=== PATIENT | female | born 1965 | race Caucasian/White ===

== ENCOUNTER 2017-02-10 09:37 | Emergency (ER) | payer MEDICARE, OTHER ==
[~2017-02-10] VITALS: Ht 165.1 cm; Wt 97.5 kg
[~2017-02-10 09:37] MED LIST: ACET-2154 PO; BENZ2AMP3 IM; Blood Sugar Diagnostic VI; FERR-38 PO; FLUT1DIS28 IH; HYDR-3326 PO; HYDR12.5 PO; LACT1CAP57 PO; MAG355OR18 PO; MAGN400T26 PO; METO50TA7 PO; OLAN10VI IM; OLAN5TAB6 PO; PANT40TA2 PO; TIZA4TAB4 PO; VALS160T2 PO
[2017-02-10 10:00] LABS: *BILIRUBIN,URIN NEGATIVE (NEGATIVE); *BLOOD, URINE Trace-lysed (NEGATIVE); *CLARITY,URINE CLOUDY (CLEAR); *COLOR,URINE YELLOW (YELLOW); *KETONES,URINE NEGATIVE (NEGATIVE); *PROTEIN,URINE NEGATIVE (NEGATIVE); *UROBILINOGEN,URINE 0.2 E.U./dl (NORMAL); LEUKOCYTE ESTERASE ,URINE 2+ (NEGATIVE); NITRITE, URINE NEGATIVE (NEGATIVE); PH,URINE 5.5 (5.0-8.0); UGLUCOSE NEGATIVE (NEGATIVE)
[2017-02-10 10:12] LABS: BACTERIA,URINE FEW /HPF (NONE SEEN); SQUAMOUS EPITHELIAL CELL,UR MODERATE /HPF (NONE SEEN); WBC,URINE 20-50 /HPF (0-3)
[2017-02-10] MEDS ORDERED: ONDANSETRON ODT 4 MG TAB.RAPDIS SL ONE (10:30)
[2017-02-10] MEDS ORDERED: CEPHALEXIN MONOHYDRATE 500 MG CAPSULE PO ONE (10:30)
[2017-02-10] MEDS ORDERED: ALBU8HFA4 HHN (10:31)
[2017-02-10] MEDS ORDERED: FERR325T28 PO (10:31)
[2017-02-10] MEDS ORDERED: ONDA4TAB8 SL (10:31)
[2017-02-10] MEDS ORDERED: FLUT1BLS IH (10:31)
[2017-02-10] MEDS ORDERED: METF10002 PO (10:31)
[2017-02-10] MEDS ORDERED: ROSU10TA PO (10:31)
[2017-02-10] MEDS ORDERED: DEXL60CA3 PO (10:31)
[2017-02-10] MEDS ORDERED: OMEG1CAP55 PO (10:31)
[2017-02-10] MEDS ORDERED: PROP20TA7 PO (10:31)
[2017-02-10] MEDS ORDERED: SITA100T PO (10:31)
[2017-02-10] MEDS ORDERED: ERGO2000 PO (10:31)
[2017-02-10] MEDS ORDERED: LIFI1DRO OP (10:31)
[2017-02-10] MEDS ORDERED: CALC-811 PO (10:31)
[2017-02-10] MEDS ORDERED: SUCR1TAB31 PO (10:31)
[2017-02-10] MEDS ORDERED: LORA0.5T PO (10:36)
[2017-02-10 10:55] LABS: BASOPHILS # (AUTO) 0.2 K/uL (0.0-8.0); BASOPHILS % (AUTO) 1.7 % (0.0-2.0); EOSINOPHILS # (AUTO) 0.3 K/uL (0.0-0.7); EOSINOPHILS % (AUTO) 2.6 % (0.0-7.0); HEMATOCRIT 39.5 % (37-47); HEMOGLOBIN 12.1 G/DL (12.0-16.0); LYMPHOCYTES # (AUTO) 1.3 K/UL (0.8-4.8); MEAN CORPUSCULAR HEMOGLOBIN 23.2 UUG (27.0-31.0); MEAN CORPUSCULAR HGB CONC 31 g/dL (32.0-37.0); MONOCYTES # (AUTO) 0.6 K/UL (0.1-1.30); MONOCYTES % (AUTO) 6.1 % (0.0-11.0); NEUTROPHILS # (AUTO) 8.1 K/UL (1.8-8.9); NEUTROPHILS % (AUTO) 77.6 % (38.5-71.5); PLATELET COUNT (AUTO) 239 K/UL (150-450); WHITE BLOOD COUNT (AUTO) 10.5 K/UL (4.0-11.2)
[2017-02-10 10:57] LABS: CREATININE 1.1 mg/dL (0.6-1.3); POTASSIUM 4.6 mmol/L (3.5-5.1)
[2017-02-10] MEDS ORDERED: CEPHALEXIN MONOHYDRATE 500 MG CAPSULE ONE (11:02)
[2017-02-10] MEDS ORDERED: ONDANSETRON ODT 4 MG TAB.RAPDIS ONE (11:02)
[2017-02-10 11:03] LABS: BILIRUBIN,DIRECT 0.1 mg/dL (0.0-0.2); BILIRUBIN,TOTAL 0.3 mg/dL (0.2-1.0); TOTAL PROTEIN, SERUM 7.8 g/dL (6.4-8.2)
--- NOTE | 2017-02-10 11:19 | NUR ---
Patient discharged to home in stable conditon. Written and verbal after care instructions given. Patient verbalizes understanding of instructions.pt walks in steady gait. pt deneis any nausea,pt accompanied by caregiver. Addendum: 02/10/17 at 1121 by POLY pt refuses pain med.
[2017-02-10 11:22] VITALS: BP 132/71
[2017-02-10 14:27] LABS: EOSINOPHILS % (MANUAL) 3 % (0-8); LYMPHOCYTES % (MANUAL) 16 % (20-40); MONOCYTES % (MANUAL) 7 % (2-10); NEUTROPHILS % (MANUAL) 74 % (42-75)
== END 2017-02-10 11:23 | disposition home or self-care (01) ==
LOC: ER 09:37
DX: N39.0 Urinary tract infection, site not specified (principal); I10 Essential (primary) hypertension; E78.5 Hyperlipidemia, unspecified; J45.909 Unspecified asthma, uncomplicated; E11.9 Type 2 diabetes mellitus without complications; Z88.1 Allergy status to other antibiotic agents; Z88.2 Allergy status to sulfonamides; Z88.6 Allergy status to analgesic agent; Z88.8 Allergy status to other drugs, medicaments and biological substances; Z91.013 Allergy to seafood
CPT/HCPCS: 36415; 80048; 80076; 81001; 83690; 84703; 85025; 99284; A4663; Q0162

== ENCOUNTER 2017-08-18 12:19 | Emergency (ER) | payer MEDICARE, OTHER ==
[~2017-08-18] VITALS: Ht 167.6 cm; Wt 99.8 kg
[~2017-08-18 12:19] MED LIST changes: -ACET-2154 PO; +ALBU8HFA4 HHN; -BENZ2AMP3 IM; +CALC-811 PO; +DEXL60CA3 PO; +ERGO2000 PO; -FERR-38 PO; +FERR325T28 PO; +FLUT1BLS IH; -FLUT1DIS28 IH; -HYDR-3326 PO; -HYDR12.5 PO; -LACT1CAP57 PO; +LIFI1DRO OP; +LORA0.5T PO; -MAG355OR18 PO; +METF10004 PO; -METO50TA7 PO; -OLAN10VI IM; -OLAN5TAB6 PO; +OMEG1CAP55 PO; +ONDA4TAB8 SL; +PROP20TA7 PO; +ROSU10TA PO; +SITA100T PO; +SUCR1TAB31 PO; -TIZA4TAB4 PO
[2017-08-18 12:42] LABS: *BILIRUBIN,URIN NEGATIVE (NEGATIVE); *BLOOD, URINE NEGATIVE (NEGATIVE); *CLARITY,URINE CLOUDY (CLEAR); *COLOR,URINE YELLOW (YELLOW); *KETONES,URINE NEGATIVE (NEGATIVE); *PROTEIN,URINE NEGATIVE (NEGATIVE); *UROBILINOGEN,URINE 0.2 E.U./dl (NORMAL); LEUKOCYTE ESTERASE ,URINE 1+ (NEGATIVE); NITRITE, URINE NEGATIVE (NEGATIVE); PH,URINE 5.5 (5.0-8.0); UGLUCOSE NEGATIVE (NEGATIVE)
[2017-08-18 12:57] LABS: BACTERIA,URINE FEW /HPF (NONE SEEN); RBC,URINE 0-3 /HPF (0-3); SQUAMOUS EPITHELIAL CELL,UR FEW /HPF (NONE SEEN); WBC,URINE 0-3 /HPF (0-3)
[2017-08-18] MEDS ORDERED: NITROFURANTOIN/NITROFURAN MAC 100 MG CAPSULE PO ONE (13:00)
--- NOTE | 2017-08-18 13:00 | NUR ---
Patient discharged to home in stable conditon with sister. Written and verbal after care instructions given. Patient verbalizes understanding of instructions.
[2017-08-18] MEDS ORDERED: NITROFURANTOIN/NITROFURAN MAC 100 MG CAPSULE ONE (13:02)
== END 2017-08-18 13:01 | disposition home or self-care (01) ==
LOC: ER 12:19
DX: N39.0 Urinary tract infection, site not specified (principal); E11.9 Type 2 diabetes mellitus without complications; F32.9 Major depressive disorder, single episode, unspecified; E78.5 Hyperlipidemia, unspecified; I10 Essential (primary) hypertension; J45.909 Unspecified asthma, uncomplicated; K85.90 Acute pancreatitis without necrosis or infection, unspecified; Z88.2 Allergy status to sulfonamides
CPT/HCPCS: 81001; 99283; A4663

== ENCOUNTER 2017-10-09 15:41 | Emergency (ER) | payer MEDICARE, OTHER ==
[~2017-10-09] VITALS: Ht 165.1 cm; Wt 95.3 kg
--- NOTE | 2017-10-09 16:30 | NUR ---
LABS DRAWN/URINE SENT.
[2017-10-09 16:31] LABS: BASOPHILS # (AUTO) 0.1 K/uL (0.0-8.0); BASOPHILS % (AUTO) 0.9 % (0.0-2.0); EOSINOPHILS # (AUTO) 0.3 K/uL (0.0-0.7); EOSINOPHILS % (AUTO) 2.2 % (0.0-7.0); HEMATOCRIT 34.4 % (31.2-41.9); HEMOGLOBIN 11.1 g/dL (10.9-14.3); LYMPHOCYTES # (AUTO) 1.9 K/uL (20.0-40.0); MEAN CORPUSCULAR HEMOGLOBIN 27.3 uug (24.7-32.8); MEAN CORPUSCULAR HGB CONC 32 g/dL (32.3-35.6); MEAN CORPUSCULAR VOLUME 84.4 fL (75.5-95.3); MONOCYTES % (AUTO) 8.4 % (0.0-11.0); NEUTROPHILS # (AUTO) 8.8 K/uL (1.8-8.9); NEUTROPHILS % (AUTO) 72.5 % (38.5-71.5); PLATELET COUNT (AUTO) 275 K/uL (179-408); RED BLOOD CELL COUNT(AUTO) 4.07 MIL/uL (3.63-4.92); WHITE BLOOD COUNT (AUTO) 12.1 K/uL (3.8-11.8)
[2017-10-09 16:40] LABS: POTASSIUM 3.6 mmol/L (3.5-5.1)
[2017-10-09 16:40] LABS: *BILIRUBIN,URIN NEGATIVE (NEGATIVE); *BLOOD, URINE 3+ (NEGATIVE); *COLOR,URINE RED (YELLOW); *KETONES,URINE NEGATIVE (NEGATIVE); *PROTEIN,URINE 3+ (NEGATIVE); *UROBILINOGEN,URINE 0.2 E.U./dl (NORMAL); LEUKOCYTE ESTERASE ,URINE 1+ (NEGATIVE); NITRITE, URINE NEGATIVE (NEGATIVE); PH,URINE 6.5 (5.0-8.0); UGLUCOSE NEGATIVE (NEGATIVE)
[2017-10-09 16:47] LABS: *CLARITY,URINE BLOODY (CLEAR)
[2017-10-09 16:48] LABS: MUCUS,URINE MODERATE /LPF (0-FEW); RBC,URINE TNTC /HPF (0-3); SQUAMOUS EPITHELIAL CELL,UR FEW /HPF (NONE SEEN); WBC,URINE 20-50 /HPF (0-3)
--- NOTE | 2017-10-09 19:00 | NUR ---
Ultrasound at bedside
--- NOTE | 2017-10-09 19:04 | NUR ---
SBAR REPORT TO SUZETTE BAILEY
--- NOTE | 2017-10-09 19:58 | NUR ---
Patient discharged to home in stable conditon. Written and verbal after care instructions given. Patient verbalizes understanding of instructions. Patient ambulated out of ER with steady gait, no acute signs of distress, VSS, all belongings taken.
[2017-10-09 20:00] VITALS: BP 155/83
== END 2017-10-09 20:00 | disposition home or self-care (01) ==
LOC: ER 17:52
DX: N92.4 Excessive bleeding in the premenopausal period (principal); I10 Essential (primary) hypertension; E78.5 Hyperlipidemia, unspecified; J45.909 Unspecified asthma, uncomplicated; E11.9 Type 2 diabetes mellitus without complications; Z88.2 Allergy status to sulfonamides; Z88.1 Allergy status to other antibiotic agents; Z88.8 Allergy status to other drugs, medicaments and biological substances; Z91.041 Radiographic dye allergy status; Z91.013 Allergy to seafood; Z79.84 Long term (current) use of oral hypoglycemic drugs; Z79.51 Long term (current) use of inhaled steroids; Z79.899 Other long term (current) drug therapy
CPT/HCPCS: 36415; 76856; 83690; 84703; 85025; A4663

== ENCOUNTER 2018-04-01 12:09 | Emergency (ER) | payer MEDICARE, OTHER ==
[~2018-04-01] VITALS: Ht 73.7 cm; Wt 104.3 kg
[~2018-04-01 12:09] MED LIST changes: +METF-442 PO; -METF10004 PO
--- NOTE | 2018-04-01 12:39 | NUR ---
PT IS IN ROOM #2A. DR MCFARLAND EVALUATED THE PT.
[2018-04-01 12:56] LABS: *BILIRUBIN,URIN NEGATIVE (NEGATIVE); *BLOOD, URINE 1+ (NEGATIVE); *CLARITY,URINE SLIGHTLY CLOUDY (CLEAR); *COLOR,URINE YELLOW (YELLOW); *KETONES,URINE NEGATIVE (NEGATIVE); *PROTEIN,URINE TRACE (NEGATIVE); *UROBILINOGEN,URINE 0.2 E.U./dl (NORMAL); LEUKOCYTE ESTERASE ,URINE 2+ (NEGATIVE); NITRITE, URINE NEGATIVE (NEGATIVE); PH,URINE 5.5 (5.0-8.0); UGLUCOSE NEGATIVE (NEGATIVE)
[2018-04-01 13:01] LABS: BACTERIA,URINE MANY /HPF (NONE SEEN); SQUAMOUS EPITHELIAL CELL,UR MANY /HPF (NONE SEEN); WBC,URINE 80-100 /HPF (0-3)
[2018-04-01 13:09] LABS: BASOPHILS # (AUTO) 0.1 K/uL (0.0-8.0); BASOPHILS % (AUTO) 0.7 % (0.0-2.0); EOSINOPHILS # (AUTO) 0.3 K/uL (0.0-0.7); EOSINOPHILS % (AUTO) 2.5 % (0.0-7.0); HEMATOCRIT 41.7 % (31.2-41.9); HEMOGLOBIN 13.8 g/dL (10.9-14.3); LYMPHOCYTES # (AUTO) 1.5 K/uL (20.0-40.0); LYMPHOCYTES % (AUTO) 13.4 % (20.5-51.5); MEAN CORPUSCULAR HEMOGLOBIN 27.9 uug (24.7-32.8); MEAN CORPUSCULAR HGB CONC 33 g/dL (32.3-35.6); MEAN CORPUSCULAR VOLUME 84.2 fL (75.5-95.3); MONOCYTES # (AUTO) 0.8 K/uL (2.0-10.0); MONOCYTES % (AUTO) 7.7 % (0.0-11.0); NEUTROPHILS # (AUTO) 8.3 K/uL (1.8-8.9); NEUTROPHILS % (AUTO) 75.7 % (38.5-71.5); PLATELET COUNT (AUTO) 221 K/uL (179-408); RED BLOOD CELL COUNT(AUTO) 4.95 MIL/uL (3.63-4.92)
[2018-04-01 13:16] LABS: CREATININE 1.1 mg/dL (0.6-1.3); POTASSIUM 3.7 mmol/L (3.5-5.1)
[2018-04-01 13:22] LABS: BILIRUBIN,DIRECT 0.1 mg/dL (0.0-0.2); BILIRUBIN,TOTAL 0.3 mg/dL (0.2-1.0); TOTAL PROTEIN, SERUM 8.4 g/dL (6.4-8.2)
--- NOTE | 2018-04-01 14:10 | NUR ---
PT WAS D/C'd TO HOME. D/C INSTRUCTIONS GIVEN TO THE PT.
[2018-04-01 14:11] VITALS: BP 139/81
== END 2018-04-01 14:11 | disposition home or self-care (01) ==
LOC: ER 12:11
DX: N39.0 Urinary tract infection, site not specified (principal); G89.29 Other chronic pain; R10.9 Unspecified abdominal pain; I10 Essential (primary) hypertension; E78.5 Hyperlipidemia, unspecified; J45.909 Unspecified asthma, uncomplicated; E11.9 Type 2 diabetes mellitus without complications; Z88.2 Allergy status to sulfonamides; Z88.8 Allergy status to other drugs, medicaments and biological substances; Z91.041 Radiographic dye allergy status; Z91.013 Allergy to seafood; Z79.899 Other long term (current) drug therapy
CPT/HCPCS: 36415; 70030-TC; 71045; 83690; 85025; 87077; 87086; 93005; A4663

== ENCOUNTER 2018-07-14 20:43 | Emergency (ER) | payer MEDICARE, OTHER ==
[~2018-07-14] VITALS: Ht 167.6 cm; Wt 102.1 kg
[~2018-07-14 20:43] MED LIST changes: -ROSU10TA PO; +ROSU10TA2 PO
--- NOTE | 2018-07-14 20:58 | NUR ---
PT IS IN ROOM #2A. DR TAMAYO EVALUATED THE PT.
[2018-07-14] MEDS ORDERED: diphenhydrAMINE 50 MG/1 ML VIAL IV ONE (21:30)
[2018-07-14] MEDS ORDERED: diphenhydrAMINE 50 MG/1 ML VIAL ONE (22:06)
[2018-07-14] MEDS ORDERED: GABAPENTIN 300 MG CAPSULE ONE (22:06)
[2018-07-14] MEDS: diphenhydrAMINE 50 MG/1 ML VIAL IM ONE (22:08)
[2018-07-14] MEDS: GABAPENTIN 300 MG CAPSULE PO ONE (22:08)
[2018-07-14 23:49] LABS: BASOPHILS # (AUTO) 0.1 K/uL (0.0-8.0); BASOPHILS % (AUTO) 0.7 % (0.0-2.0); EOSINOPHILS # (AUTO) 0.4 K/uL (0.0-0.7); EOSINOPHILS % (AUTO) 3.4 % (0.0-7.0); HEMATOCRIT 39.4 % (31.2-41.9); LYMPHOCYTES # (AUTO) 1.8 K/uL (20.0-40.0); LYMPHOCYTES % (AUTO) 16.5 % (20.5-51.5); MEAN CORPUSCULAR HEMOGLOBIN 27.3 uug (24.7-32.8); MEAN CORPUSCULAR HGB CONC 33 g/dL (32.3-35.6); MEAN CORPUSCULAR VOLUME 82.6 fL (75.5-95.3); MONOCYTES # (AUTO) 1.1 K/uL (2.0-10.0); MONOCYTES % (AUTO) 9.9 % (0.0-11.0); NEUTROPHILS # (AUTO) 7.7 K/uL (1.8-8.9); NEUTROPHILS % (AUTO) 69.5 % (38.5-71.5); PLATELET COUNT (AUTO) 243 K/uL (179-408); RED BLOOD CELL COUNT(AUTO) 4.77 MIL/uL (3.63-4.92)
[2018-07-14 23:57] LABS: CREATININE 1.1 mg/dL (0.6-1.3); POTASSIUM 3.6 mmol/L (3.5-5.1)
[2018-07-15 00:10] LABS: BILIRUBIN,DIRECT 0.1 mg/dL (0.0-0.2); BILIRUBIN,TOTAL 0.5 mg/dL (0.2-1.0)
[2018-07-15] MEDS: HYDROMORPHONE 1 MG/1 ML DISP.SYRIN IM ONE (00:30)
[2018-07-15] MEDS: diphenhydrAMINE 50 MG/1 ML VIAL IM ONE (00:30)
--- NOTE | 2018-07-15 01:48 | NUR ---
PT WAS D/C'd TO HOME AFTER DR TAMAYO RE-EVALUATION. D/C INSTRUCTIONS GIVEN TO THE PT BY DR TAMAYO. PT WAS TRANSFERED TO HER LOCATION BY [facility].
[2018-07-15 01:52] VITALS: BP 125/75
== END 2018-07-15 01:58 | disposition home or self-care (01) ==
LOC: ER 20:44
DX: G47.00 Insomnia, unspecified (principal); G89.29 Other chronic pain; M54.9 Dorsalgia, unspecified; I10 Essential (primary) hypertension; I25.2 Old myocardial infarction; E78.5 Hyperlipidemia, unspecified; J45.909 Unspecified asthma, uncomplicated; E11.9 Type 2 diabetes mellitus without complications; Z88.2 Allergy status to sulfonamides; Z88.8 Allergy status to other drugs, medicaments and biological substances; Z91.013 Allergy to seafood; Z79.899 Other long term (current) drug therapy
CPT/HCPCS: 36415; 71045; 80048; 80076; 83880; 84484; 85025; 85730; 93005; 96372; 99284; J1200; 70030-TC; A4663

== ENCOUNTER 2018-11-25 12:55 | Inpatient (IN) | payer MEDICARE, OTHER ==
[~2018-11-25] VITALS: Ht 167.6 cm; Wt 96.2 kg
[~2018-11-25 12:55] MED LIST changes: +CALC-17 PO; -CALC-811 PO
--- NOTE | 2018-11-25 13:10 | NUR ---
PT DOES NOT REMEMBER HER HOME MEDICATION CHANGES.
[2018-11-25 14:56] LABS: BASOPHILS # (AUTO) 0.1 K/uL (0.0-8.0); BASOPHILS % (AUTO) 0.8 % (0.0-2.0); EOSINOPHILS # (AUTO) 0.3 K/uL (0.0-0.7); HEMATOCRIT 37.2 % (31.2-41.9); LYMPHOCYTES # (AUTO) 2.2 K/uL (20.0-40.0); LYMPHOCYTES % (AUTO) 17.4 % (20.5-51.5); MEAN CORPUSCULAR HEMOGLOBIN 27.4 uug (24.7-32.8); MEAN CORPUSCULAR HGB CONC 32 g/dL (32.3-35.6); MEAN CORPUSCULAR VOLUME 84.5 fL (75.5-95.3); MONOCYTES # (AUTO) 1.1 K/uL (2.0-10.0); MONOCYTES % (AUTO) 8.2 % (0.0-11.0); NEUTROPHILS # (AUTO) 9.2 K/uL (1.8-8.9); NEUTROPHILS % (AUTO) 71.6 % (38.5-71.5); PLATELET COUNT (AUTO) 218 K/uL (179-408); WHITE BLOOD COUNT (AUTO) 12.9 K/uL (3.8-11.8)
[2018-11-25 15:08] LABS: CARBON DIOXIDE 23 mmol/L (21-32); CHLORIDE 107 mmol/L (98-107); CREATININE 0.9 mg/dL (0.6-1.3); GLUCOSE 107 mg/dL (74-106); POTASSIUM 4.4 mmol/L (3.5-5.1); UREA NITROGEN, BLOOD 33 mg/dL (7-18)
[2018-11-25 15:12] LABS: ETHANOL < 3 MG/DL (0-0)
[2018-11-25 15:13] LABS: ALANINE AMINOTRANSFERASE 29 U/L (14-59); ALKALINE PHOSPHATASE 66 U/L (50-136); ASPARTATE AMINOTRANSFERASE 23 U/L (15-37); BILIRUBIN,DIRECT 0.1 mg/dL (0.0-0.2); BILIRUBIN,TOTAL 0.2 mg/dL (0.2-1.0); TOTAL PROTEIN, SERUM 7.6 g/dL (6.4-8.2)
[2018-11-25 15:14] LABS: ACETAMINOPHEN < 2.0 ug/mL (10-30)
--- NOTE | 2018-11-25 15:30 | NUR ---
Hydro Operator assumes care. Patient is medically cleared by Dr Banegas, pending psych evaluation by kerrie Leahy. Patient is calm & cooperative with steady gait.
[2018-11-25 16:28] LABS: *BILIRUBIN,URIN NEGATIVE (NEGATIVE); *COLOR,URINE YELLOW (YELLOW); *KETONES,URINE NEGATIVE (NEGATIVE); *UROBILINOGEN,URINE 0.2 E.U./dl (NORMAL); LEUKOCYTE ESTERASE ,URINE 3+ (NEGATIVE); NITRITE, URINE NEGATIVE (NEGATIVE); PH,URINE 5.5 (5.0-8.0); UGLUCOSE NEGATIVE (NEGATIVE)
[2018-11-25 16:45] LABS: *BLOOD, URINE TRACE (NEGATIVE); *CLARITY,URINE HAZY (CLEAR)
[2018-11-25 16:48] LABS: BACTERIA,URINE MODERATE /HPF (NONE SEEN); SQUAMOUS EPITHELIAL CELL,UR MANY /HPF (NONE SEEN); WBC,URINE 80-100 /HPF (0-3)
[2018-11-25 16:49] LABS: *AMPHETAMINE, URINE NEGATIVE (NEGATIVE); *BARBITURATE, URINE NEGATIVE (NEGATIVE); *CANNABINOID, URINE NEGATIVE (NEGATIVE); *COCCAINE, URINE NEGATIVE (NEGATIVE); *OPIATE, URINE NEGATIVE (NEGATIVE); *PHENCYCLIDINE SCREEN,URINE NEGATIVE (NEGATIVE)
--- NOTE | 2018-11-25 17:55 | NUR ---
Patient is eating dinner tray with good appetite, no acute change in condition seen.
--- NOTE | 2018-11-25 19:04 | NUR ---
Pt. admitted to M[facility] room 139 , under care of Dr. Arnie More & [facility] hospitalist. Belongs List completed. Nursing hands off report given to MHU RN Eduard.
--- NOTE | 2018-11-25 19:09 | NUR ---
Patient is still for transfer to MHU, endorsed to LEO Hodges.
[2018-11-25] MEDS ORDERED: LORAZEPAM 1 MG TABLET PO PRN (19:30)
[2018-11-25] MEDS ORDERED: BLOOD SUGAR DIAGNOSTIC 1 EACH STRIP VI ONE (19:30)
[2018-11-25] MEDS ORDERED: MAGNESIUM HYDROXIDE 30 ML LIQUID UDC PO PRN (19:30)
[2018-11-25 20:00] VITALS: BP 133/73
[2018-11-25] MEDS ORDERED: DEXTROSE 50% 50 ML DISP.SYRIN IV PRN (20:00)
[2018-11-25] MEDS ORDERED: ONDANSETRON ODT 4 MG TAB.RAPDIS SL PRN (20:00)
[2018-11-25] MEDS ORDERED: Medication Not On Formulary EA (Ergocalciferol (Vitamin D2) (Vitamin D2 TAB) 50,000 UNIT PO SCH (20:00)
[2018-11-25] MEDS ORDERED: INSULIN REGULAR, HUMAN 300 UNIT/3 ML VIAL SQ PRN (20:00)
--- NOTE | 2018-11-25 20:30 | NUR ---
GPS/NSG ADMITTING NOTE Patient was placed on a 5150 for grave disability after the caregiver brought her to ER because she was unable to sleep for days, was emotional and labile with the inability to calm down. On admission patient was alert, oriented x3, flat affect, low mood, disheveled, malodorous and unkempt. Patient cooperative with admission process, signed paperwork, patient rights handbook provided as well as oriented to her room and unit. Psychiatrist and physician notified. Plan of care initiated, will monitor for safety.
[2018-11-25] MEDS: CEphaleXIN 500 MG CAPSULE PO SCH (20:50)
[2018-11-25] MEDS: BLOOD SUGAR DIAGNOSTIC 1 EACH STRIP VI SCH (20:50)
[2018-11-26] MEDS: PANTOPRAZOLE SODIUM 40 MG TABLET.DR PO SCH (07:00)
--- NOTE | 2018-11-26 07:20 | NUR ---
Patient received, ambulating in room, no acute distress noted. denies SI and hallucinations/delusions will continue to monitor for any AMY.
[2018-11-26 07:30] VITALS: BP 116/67
[2018-11-26] MEDS: SUCRALFATE 1 G TABLET PO SCH ×3 (07:31→16:30)
[2018-11-26] MEDS: BLOOD SUGAR DIAGNOSTIC 1 EACH STRIP VI SCH ×4 (07:37→21:14)
[2018-11-26] MEDS: METFORMIN HCL 500 MG TABLET PO SCH ×2 (08:37→17:28)
[2018-11-26] MEDS: ATORVASTATIN 20 MG TABLET PO SCH (08:37)
[2018-11-26] MEDS: MAGNESIUM OXIDE 400 MG TABLET PO SCH ×2 (08:37→17:29)
[2018-11-26] MEDS: OMEGA-3 FATTY ACIDS/FISH OIL CAPSULE PO SCH (08:37)
[2018-11-26] MEDS: CEphaleXIN 500 MG CAPSULE PO SCH ×2 (08:38→17:28)
[2018-11-26] MEDS: FERROUS SULFATE 325 MG TABEC PO SCH ×2 (08:38→17:29)
[2018-11-26] MEDS: LINAGLIPTIN 5 MG TABLET PO SCH (08:39)
[2018-11-26] MEDS: PROPRANOLOL HCL 20 MG TABLET PO SCH ×2 (08:40→17:28)
[2018-11-26] MEDS: CALCIUM CARB/VITAMIN D 500MG-200UNITS TABLET PO SCH (08:41)
[2018-11-26] MEDS: VALSARTAN 160 MG TABLET PO SCH (08:44)
[2018-11-26] MEDS ORDERED: Medication Not On Formulary EA (Dexlansoprazole (Dexilant) 30 MG) PO SCH (09:00)
[2018-11-26] MEDS ORDERED: Medication Not On Formulary EA (Rosuvastatin Calcium (Crestor) 1 TAB) PO SCH (09:00)
[2018-11-26] MEDS ORDERED: Medication Not On Formulary EA (Omega-3 Acid Ethyl Esters (Lovaza) 1 GM) PO SCH (09:00)
[2018-11-26] MEDS ORDERED: diphenhydrAMINE 1% CREAM 28.3 GM TUBE TP PRN (13:00)
[2018-11-26 15:22] LABS: BASOPHILS # (AUTO) 0.1 K/uL (0.0-8.0); BASOPHILS % (AUTO) 0.7 % (0.0-2.0); EOSINOPHILS # (AUTO) 0.4 K/uL (0.0-0.7); EOSINOPHILS % (AUTO) 3.9 % (0.0-7.0); HEMATOCRIT 39.8 % (31.2-41.9); HEMOGLOBIN 13.1 g/dL (10.9-14.3); LYMPHOCYTES # (AUTO) 1.8 K/uL (20.0-40.0); LYMPHOCYTES % (AUTO) 16.5 % (20.5-51.5); MEAN CORPUSCULAR HEMOGLOBIN 27.7 uug (24.7-32.8); MEAN CORPUSCULAR HGB CONC 33 g/dL (32.3-35.6); MEAN CORPUSCULAR VOLUME 84.5 fL (75.5-95.3); MONOCYTES # (AUTO) 0.9 K/uL (2.0-10.0); MONOCYTES % (AUTO) 8.6 % (0.0-11.0); NEUTROPHILS # (AUTO) 7.6 K/uL (1.8-8.9); NEUTROPHILS % (AUTO) 70.3 % (38.5-71.5); PLATELET COUNT (AUTO) 235 K/uL (179-408); RED BLOOD CELL COUNT(AUTO) 4.72 MIL/uL (3.63-4.92); WHITE BLOOD COUNT (AUTO) 10.8 K/uL (3.8-11.8)
[2018-11-26 15:46] LABS: MAGNESIUM 1.3 mg/dL (1.8-2.4); PHOSPHOROUS 3.2 mg/dL (2.5-4.9); POTASSIUM 4.4 mmol/L (3.5-5.1)
[2018-11-26 16:00] VITALS: BP 112/58
[2018-11-26 16:00] LABS: THYROID STIMULATING HORMONE 1.415 mIU/mL (0.358-3.740)
--- NOTE | 2018-11-26 17:12 | NUR ---
Initial discharge plan: Pt resides at home alone with [facility]HSS at [address] [place] [address], [facility] [address]; [phone]. Per pt, she would like to return home upon discharge but would like to change IHSS provides, as she is not comfortable with her current provider. SW will speak with pt, family, and MD regarding appropriate discharge plans. SW will form a safe and proper discharge plan.
[2018-11-26 20:09] VITALS: BP 135/87
[2018-11-26] MEDS: QUETIAPINE FUMARATE 100 MG TABLET PO SCH (21:22)
[2018-11-27] MEDS: SUCRALFATE 1 G TABLET PO SCH ×3 (07:00→18:09)
[2018-11-27] MEDS: PANTOPRAZOLE SODIUM 40 MG TABLET.DR PO SCH (07:00)
[2018-11-27] MEDS: BLOOD SUGAR DIAGNOSTIC 1 EACH STRIP VI SCH ×5 (07:00→21:00)
[2018-11-27 07:30] VITALS: BP 132/72
[2018-11-27 07:33] LABS: MAGNESIUM 1.3 mg/dL (1.8-2.4); POTASSIUM 4.3 mmol/L (3.5-5.1)
[2018-11-27 07:42] LABS: BASOPHILS # (AUTO) 0.1 K/uL (0.0-8.0); BASOPHILS % (AUTO) 0.6 % (0.0-2.0); EOSINOPHILS # (AUTO) 0.4 K/uL (0.0-0.7); EOSINOPHILS % (AUTO) 4.6 % (0.0-7.0); HEMATOCRIT 39.5 % (31.2-41.9); HEMOGLOBIN 12.8 g/dL (10.9-14.3); LYMPHOCYTES # (AUTO) 1.8 K/uL (20.0-40.0); LYMPHOCYTES % (AUTO) 21.4 % (20.5-51.5); MEAN CORPUSCULAR HEMOGLOBIN 27.8 uug (24.7-32.8); MEAN CORPUSCULAR HGB CONC 33 g/dL (32.3-35.6); MEAN CORPUSCULAR VOLUME 85.5 fL (75.5-95.3); MONOCYTES # (AUTO) 0.9 K/uL (2.0-10.0); MONOCYTES % (AUTO) 10.7 % (0.0-11.0); NEUTROPHILS # (AUTO) 5.3 K/uL (1.8-8.9); NEUTROPHILS % (AUTO) 62.7 % (38.5-71.5); PLATELET COUNT (AUTO) 216 K/uL (179-408); RED BLOOD CELL COUNT(AUTO) 4.62 MIL/uL (3.63-4.92); WHITE BLOOD COUNT (AUTO) 8.4 K/uL (3.8-11.8)
[2018-11-27] MEDS: SERTRALINE HCL 50 MG TABLET PO SCH (08:23)
[2018-11-27] MEDS: LINAGLIPTIN 5 MG TABLET PO SCH (08:23)
[2018-11-27] MEDS: PROPRANOLOL HCL 20 MG TABLET PO SCH ×2 (08:23→18:10)
[2018-11-27] MEDS: MAGNESIUM OXIDE 400 MG TABLET PO SCH ×2 (08:23→18:09)
[2018-11-27] MEDS: OMEGA-3 FATTY ACIDS/FISH OIL CAPSULE PO SCH (08:23)
[2018-11-27] MEDS: METFORMIN HCL 500 MG TABLET PO SCH ×2 (08:23→18:09)
[2018-11-27] MEDS: VALSARTAN 160 MG TABLET PO SCH (08:23)
[2018-11-27] MEDS: CALCIUM CARB/VITAMIN D 500MG-200UNITS TABLET PO SCH (08:23)
[2018-11-27] MEDS: ATORVASTATIN 20 MG TABLET PO SCH (08:23)
[2018-11-27] MEDS: CEphaleXIN 500 MG CAPSULE PO SCH ×2 (08:24→18:09)
[2018-11-27] MEDS: FERROUS SULFATE 325 MG TABEC PO SCH ×2 (08:24→18:09)
[2018-11-27] MEDS ORDERED: MAGNESIUM OXIDE 400 MG TABLET PO ONE (13:45)
[2018-11-27 16:00] VITALS: BP 146/83
[2018-11-27] MEDS: ERGOCALCIFEROL 50,000 UNIT CAPSULE PO SCH (20:14)
[2018-11-27] MEDS: QUETIAPINE FUMARATE 100 MG TABLET PO SCH (20:22)
--- NOTE | 2018-11-27 20:26 | NUR ---
received to care, talking to self. appearing distracted by internal stimuli. stated that "PEOPLE" from the outside, are monitoring her in the hospital, and that the staff is in on the conspiracy. she refused all medications, did allow blood sugar check (131), but refused insulin coverage. currently in hallway with room mate. continues to appear distracted by internal stimuli.
[2018-11-27 20:57] VITALS: BP 144/81
--- NOTE | 2018-11-27 22:00 | NUR ---
appears to be asleep. no distress noted.
--- NOTE | 2018-11-28 06:00 | NUR ---
slept 6.5 hours. continues to sleep. no distress noted.
[2018-11-28] MEDS: PANTOPRAZOLE SODIUM 40 MG TABLET.DR PO SCH (07:00)
--- NOTE | 2018-11-28 07:00 | NUR ---
PATIENT FASTING BLOOD GLUCOSE LEVEL IS 117. WILL CONTINUE TO MONITOR.
[2018-11-28 07:30] VITALS: BP 118/68
[2018-11-28] MEDS: BLOOD SUGAR DIAGNOSTIC 1 EACH STRIP VI SCH ×4 (07:30→21:18)
[2018-11-28] MEDS: SERTRALINE HCL 50 MG TABLET PO SCH (09:00)
[2018-11-28] MEDS: FERROUS SULFATE 325 MG TABEC PO SCH ×2 (09:00→17:00)
[2018-11-28] MEDS: MAGNESIUM OXIDE 400 MG TABLET PO SCH ×2 (09:03→17:02)
[2018-11-28] MEDS: OMEGA-3 FATTY ACIDS/FISH OIL CAPSULE PO SCH (09:04)
[2018-11-28] MEDS: CEphaleXIN 500 MG CAPSULE PO SCH ×2 (09:05→17:01)
[2018-11-28] MEDS: ATORVASTATIN 20 MG TABLET PO SCH (09:05)
[2018-11-28] MEDS: METFORMIN HCL 500 MG TABLET PO SCH ×2 (09:05→17:05)
[2018-11-28] MEDS: CALCIUM CARB/VITAMIN D 500MG-200UNITS TABLET PO SCH (09:05)
[2018-11-28] MEDS: SUCRALFATE 1 G TABLET PO SCH ×3 (09:06→17:01)
[2018-11-28] MEDS: PROPRANOLOL HCL 20 MG TABLET PO SCH ×2 (09:07→17:01)
[2018-11-28] MEDS: LINAGLIPTIN 5 MG TABLET PO SCH (09:08)
[2018-11-28] MEDS: VALSARTAN 160 MG TABLET PO SCH (12:49)
[2018-11-28 16:00] VITALS: BP 133/77
[2018-11-28 20:49] VITALS: BP 118/62
--- NOTE | 2018-11-28 21:00 | NUR ---
Patient is pleasantly confused. Alert and oriented x2. Reinforced teaching on her plan of care. Initially refused medication but took meds after teaching. Blood glucose HS is 117mg/dl. No coverage given. Offered Mylanta Po PRN for stomach upset and discomfort. Will continue to monitor behavior and medication effectiveness.
[2018-11-28] MEDS: QUETIAPINE FUMARATE 100 MG TABLET PO SCH (21:15)
[2018-11-28] MEDS: MAG HYDROX/AL HYDROX/SIMETH 30 ML LIQUID UDC PO PRN (21:15)
[2018-11-29] MEDS: PANTOPRAZOLE SODIUM 40 MG TABLET.DR PO SCH (06:40)
[2018-11-29] MEDS: SUCRALFATE 1 G TABLET PO SCH ×3 (06:40→17:33)
[2018-11-29] MEDS: BLOOD SUGAR DIAGNOSTIC 1 EACH STRIP VI SCH ×2 (06:42→12:33)
[2018-11-29 07:30] VITALS: BP 123/59
[2018-11-29] MEDS: MAGNESIUM OXIDE 400 MG TABLET PO SCH ×2 (08:54→17:31)
[2018-11-29] MEDS: OMEGA-3 FATTY ACIDS/FISH OIL CAPSULE PO SCH (08:54)
[2018-11-29] MEDS: CEphaleXIN 500 MG CAPSULE PO SCH ×2 (08:54→17:32)
[2018-11-29] MEDS: METFORMIN HCL 500 MG TABLET PO SCH ×2 (08:57→17:37)
[2018-11-29] MEDS: SERTRALINE HCL 50 MG TABLET PO SCH (08:57)
[2018-11-29] MEDS: ATORVASTATIN 20 MG TABLET PO SCH (08:58)
[2018-11-29] MEDS: FERROUS SULFATE 325 MG TABEC PO SCH ×2 (08:58→17:33)
[2018-11-29] MEDS: LINAGLIPTIN 5 MG TABLET PO SCH (08:59)
[2018-11-29] MEDS: VALSARTAN 160 MG TABLET PO SCH (08:59)
[2018-11-29] MEDS: CALCIUM CARB/VITAMIN D 500MG-200UNITS TABLET PO SCH (08:59)
[2018-11-29] MEDS: PROPRANOLOL HCL 20 MG TABLET PO SCH ×2 (09:01→17:32)
[2018-11-29 16:00] VITALS: BP 136/65
[2018-11-29] MEDS ORDERED: INSULIN REGULAR, HUMAN 300 UNIT/3 ML VIAL SQ PRN (17:00)
[2018-11-29] MEDS: QUETIAPINE FUMARATE 100 MG TABLET PO SCH (20:31)
[2018-11-29 20:43] VITALS: BP 129/60
[2018-11-29] MEDS ORDERED: IBUPROFEN 400 MG TABLET ONE (23:11)
[2018-11-30] MEDS: SUCRALFATE 1 G TABLET PO SCH ×3 (06:38→16:34)
[2018-11-30] MEDS: PANTOPRAZOLE SODIUM 40 MG TABLET.DR PO SCH (06:38)
[2018-11-30] MEDS: IBUPROFEN 400 MG TABLET PO PRN ×3 (07:18→21:50)
[2018-11-30 07:59] VITALS: BP 109/54
[2018-11-30] MEDS: CEphaleXIN 500 MG CAPSULE PO SCH (08:24)
[2018-11-30] MEDS: METFORMIN HCL 500 MG TABLET PO SCH ×2 (08:24→17:11)
[2018-11-30] MEDS: SERTRALINE HCL 50 MG TABLET PO SCH (08:25)
[2018-11-30] MEDS: ATORVASTATIN 20 MG TABLET PO SCH (08:25)
[2018-11-30] MEDS: FERROUS SULFATE 325 MG TABEC PO SCH ×2 (08:25→16:34)
[2018-11-30] MEDS: MAGNESIUM OXIDE 400 MG TABLET PO SCH ×2 (08:26→16:33)
[2018-11-30] MEDS: CALCIUM CARB/VITAMIN D 500MG-200UNITS TABLET PO SCH (08:26)
[2018-11-30] MEDS: OMEGA-3 FATTY ACIDS/FISH OIL CAPSULE PO SCH (08:26)
[2018-11-30] MEDS: VALSARTAN 160 MG TABLET PO SCH (08:27)
[2018-11-30] MEDS: LINAGLIPTIN 5 MG TABLET PO SCH (08:27)
[2018-11-30] MEDS: PROPRANOLOL HCL 20 MG TABLET PO SCH ×2 (08:28→16:33)
[2018-11-30] MEDS ORDERED: BLOOD SUGAR DIAGNOSTIC 1 EACH STRIP VI SCH (09:00)
[2018-11-30 15:49] VITALS: BP 96/76
[2018-11-30] MEDS: chlorproMAZINE 25 MG TABLET PO SCH (20:05)
[2018-11-30 20:30] VITALS: BP 123/63
[2018-11-30] MEDS: TEMAZEPAM 7.5 MG CAPSULE PO PRN (22:54)
[2018-11-30] MEDS: MAG HYDROX/AL HYDROX/SIMETH 30 ML LIQUID UDC PO PRN (23:07)
[2018-12-01] MEDS: PANTOPRAZOLE SODIUM 40 MG TABLET.DR PO SCH (06:20)
--- NOTE | 2018-12-01 06:31 | NUR ---
Received Pt in bed awake. A+Ox4, VS stable. Pt is needy with snacks and seeking of pain medication. Motrin 400mg administere for 5/10 aching back pain. Denies any depression and denies SI/HI/AH/VH. Pt stated, "I'm delayed developmentally." Compliant with though needy with medications, cooperative with staff direction. Attentionseeking and somehwat intrusive. C/o indigestion and nausea, Zofran 4mg and Maalox 30ml administered with good effect. Pt requested Retsril for restlessness, 7.5mg administered with good effect. DAYO 113. Addendum: 12/01/18 at 0637 by TROY ELLIS RN Correction: DAYO 113
[2018-12-01] MEDS: SUCRALFATE 1 G TABLET PO SCH ×3 (06:35→16:38)
[2018-12-01] MEDS: BLOOD SUGAR DIAGNOSTIC 1 EACH STRIP VI SCH (06:36)
[2018-12-01 07:10] LABS: BASOPHILS # (AUTO) 0.1 K/uL (0.0-8.0); BASOPHILS % (AUTO) 0.6 % (0.0-2.0); EOSINOPHILS # (AUTO) 0.3 K/uL (0.0-0.7); EOSINOPHILS % (AUTO) 2.7 % (0.0-7.0); HEMATOCRIT 40.2 % (31.2-41.9); HEMOGLOBIN 13.6 g/dL (10.9-14.3); LYMPHOCYTES # (AUTO) 1.9 K/uL (20.0-40.0); LYMPHOCYTES % (AUTO) 19.3 % (20.5-51.5); MEAN CORPUSCULAR HEMOGLOBIN 27.9 uug (24.7-32.8); MEAN CORPUSCULAR HGB CONC 34 g/dL (32.3-35.6); MEAN CORPUSCULAR VOLUME 82.1 fL (75.5-95.3); MONOCYTES # (AUTO) 0.9 K/uL (2.0-10.0); MONOCYTES % (AUTO) 8.9 % (0.0-11.0); NEUTROPHILS # (AUTO) 6.8 K/uL (1.8-8.9); NEUTROPHILS % (AUTO) 68.5 % (38.5-71.5); PLATELET COUNT (AUTO) 239 K/uL (179-408); RED BLOOD CELL COUNT(AUTO) 4.89 MIL/uL (3.63-4.92); WHITE BLOOD COUNT (AUTO) 9.9 K/uL (3.8-11.8)
[2018-12-01 07:23] LABS: CREATININE 1.2 mg/dL (0.6-1.3); MAGNESIUM 1.7 mg/dL (1.8-2.4); PHOSPHOROUS 3.2 mg/dL (2.5-4.9); POTASSIUM 4.4 mmol/L (3.5-5.1)
[2018-12-01 07:45] VITALS: BP 116/67
[2018-12-01] MEDS: OMEGA-3 FATTY ACIDS/FISH OIL CAPSULE PO SCH (08:32)
[2018-12-01] MEDS: MAGNESIUM OXIDE 400 MG TABLET PO SCH ×2 (08:32→16:34)
[2018-12-01] MEDS: FERROUS SULFATE 325 MG TABEC PO SCH ×2 (08:33→16:34)
[2018-12-01] MEDS: SERTRALINE HCL 50 MG TABLET PO SCH (08:33)
[2018-12-01] MEDS: METFORMIN HCL 500 MG TABLET PO SCH ×2 (08:33→17:03)
[2018-12-01] MEDS: CALCIUM CARB/VITAMIN D 500MG-200UNITS TABLET PO SCH (08:35)
[2018-12-01] MEDS: chlorproMAZINE 25 MG TABLET PO SCH ×2 (08:36→21:00)
[2018-12-01] MEDS: LINAGLIPTIN 5 MG TABLET PO SCH (08:36)
[2018-12-01] MEDS: VALSARTAN 160 MG TABLET PO SCH (08:36)
[2018-12-01] MEDS: PROPRANOLOL HCL 20 MG TABLET PO SCH ×3 (08:37→16:40)
[2018-12-01] MEDS: ATORVASTATIN 20 MG TABLET PO SCH (08:38)
[2018-12-01] MEDS: IBUPROFEN 400 MG TABLET PO PRN ×2 (11:46→21:57)
[2018-12-01] MEDS ORDERED: MAGNESIUM OXIDE 400 MG TABLET PO ONE (12:00)
[2018-12-01 15:50] VITALS: BP 92/62
[2018-12-01 20:00] VITALS: BP 104/50
--- NOTE | 2018-12-01 22:00 | NUR ---
received to care, isolative in room, but pleasant when approached. compliant with medications and staff direction. as of 2199, she remains awake, in bed. declined PRN medication for sleep. no distress noted. will continue to monitor closely.
--- NOTE | 2018-12-02 06:00 | NUR ---
slept 7.0 hours, total. continues to sleep. no distress noted.
[2018-12-02] MEDS: PANTOPRAZOLE SODIUM 40 MG TABLET.DR PO SCH (06:31)
[2018-12-02] MEDS: BLOOD SUGAR DIAGNOSTIC 1 EACH STRIP VI SCH (06:31)
[2018-12-02 07:30] VITALS: BP 124/75
[2018-12-02] MEDS: MAGNESIUM OXIDE 400 MG TABLET PO SCH ×2 (08:01→17:00)
[2018-12-02] MEDS: FERROUS SULFATE 325 MG TABEC PO SCH ×2 (08:01→17:00)
[2018-12-02] MEDS: ATORVASTATIN 20 MG TABLET PO SCH (08:01)
[2018-12-02] MEDS: OMEGA-3 FATTY ACIDS/FISH OIL CAPSULE PO SCH (08:02)
[2018-12-02] MEDS: SUCRALFATE 1 G TABLET PO SCH ×3 (08:03→17:00)
[2018-12-02] MEDS: METFORMIN HCL 500 MG TABLET PO SCH ×2 (08:03→17:00)
[2018-12-02] MEDS: chlorproMAZINE 25 MG TABLET PO SCH ×2 (08:04→20:23)
[2018-12-02] MEDS: CALCIUM CARB/VITAMIN D 500MG-200UNITS TABLET PO SCH (08:04)
[2018-12-02] MEDS: SERTRALINE HCL 100 MG TABLET PO SCH (08:04)
[2018-12-02] MEDS: PROPRANOLOL HCL 20 MG TABLET PO SCH ×2 (08:15→17:01)
[2018-12-02] MEDS: LINAGLIPTIN 5 MG TABLET PO SCH (08:15)
[2018-12-02] MEDS: VALSARTAN 160 MG TABLET PO SCH (08:15)
[2018-12-02] MEDS ORDERED: IBUPROFEN 400 MG TABLET PO PRN (09:00)
[2018-12-02] MEDS: MAG HYDROX/AL HYDROX/SIMETH 30 ML LIQUID UDC PO PRN (12:38)
[2018-12-02] MEDS: IBUPROFEN 600 MG TABLET PO PRN ×2 (13:17→20:23)
[2018-12-02 16:00] VITALS: BP 113/66
[2018-12-02 21:02] VITALS: BP 118/62
[2018-12-02] MEDS: TEMAZEPAM 7.5 MG CAPSULE PO PRN (23:07)
--- NOTE | 2018-12-03 05:37 | NUR ---
Patient up and down during the night with small requests. Slept 5.30 hours. Patient awake at this time, laying quietly in the bed. No c/o pain and no acute distress noted. Continuing to monitor.
[2018-12-03] MEDS: BLOOD SUGAR DIAGNOSTIC 1 EACH STRIP VI SCH (06:22)
[2018-12-03] MEDS: IBUPROFEN 600 MG TABLET PO PRN ×2 (06:22→20:46)
[2018-12-03] MEDS: PANTOPRAZOLE SODIUM 40 MG TABLET.DR PO SCH (06:22)
[2018-12-03] MEDS: SUCRALFATE 1 G TABLET PO SCH ×3 (06:23→16:38)
[2018-12-03 07:30] VITALS: BP 100/33
[2018-12-03] MEDS: METFORMIN HCL 500 MG TABLET PO SCH ×2 (08:44→18:45)
[2018-12-03] MEDS: chlorproMAZINE 25 MG TABLET PO SCH ×2 (08:44→20:43)
[2018-12-03] MEDS: VALSARTAN 160 MG TABLET PO SCH (08:45)
[2018-12-03] MEDS: MAGNESIUM OXIDE 400 MG TABLET PO SCH ×2 (08:45→16:38)
[2018-12-03] MEDS: FERROUS SULFATE 325 MG TABEC PO SCH ×2 (08:46→16:38)
[2018-12-03] MEDS: LINAGLIPTIN 5 MG TABLET PO SCH (08:46)
[2018-12-03] MEDS: OMEGA-3 FATTY ACIDS/FISH OIL CAPSULE PO SCH (08:46)
[2018-12-03] MEDS: SERTRALINE HCL 100 MG TABLET PO SCH (08:46)
[2018-12-03] MEDS: CALCIUM CARB/VITAMIN D 500MG-200UNITS TABLET PO SCH (08:47)
[2018-12-03] MEDS: ATORVASTATIN 20 MG TABLET PO SCH (08:47)
[2018-12-03] MEDS: PROPRANOLOL HCL 20 MG TABLET PO SCH ×2 (09:00→16:41)
--- NOTE | 2018-12-03 10:00 | NUR ---
Gps/Reed Dipper- Patient claimed she didnt have a good night sleep, r/t noise and increased stomach discomfort, feeling bloated per patient as well as back pain and some headache. She thinks her period is possible coming.
[2018-12-03 16:00] VITALS: BP 104/50
[2018-12-03 20:00] VITALS: BP 111/58
[2018-12-03] MEDS: MAG HYDROX/AL HYDROX/SIMETH 30 ML LIQUID UDC PO PRN (21:21)
--- NOTE | 2018-12-03 21:54 | NUR ---
PATIENT RECEIVED IN BED AWAKE. PATIENT REMAINS ISOLATIVE/WITHDRAWN. PATIENT DENIES SI/HI, WILL CONTINUE TO MONITOR. PATIENT IN NO APPARENT DISTRESS, NO AGGRESSIVE OR COMBATIVE BEHAVIOR WILL CONTINUE TO MONITOR. BED IN LOWEST POSITION, BED LOCKED, AND BED ALARM ON WHILE IN BED.PATIENT COMPLAINT WITH MEDICATION.
[2018-12-04] MEDS: PANTOPRAZOLE SODIUM 40 MG TABLET.DR PO SCH (06:29)
[2018-12-04] MEDS: SUCRALFATE 1 G TABLET PO SCH ×3 (06:30→16:52)
[2018-12-04] MEDS: BLOOD SUGAR DIAGNOSTIC 1 EACH STRIP VI SCH (06:39)
[2018-12-04 07:30] VITALS: BP 105/48
[2018-12-04] MEDS: OMEGA-3 FATTY ACIDS/FISH OIL CAPSULE PO SCH (08:45)
[2018-12-04] MEDS: LINAGLIPTIN 5 MG TABLET PO SCH (08:46)
[2018-12-04] MEDS: MAGNESIUM OXIDE 400 MG TABLET PO SCH ×2 (08:46→16:50)
[2018-12-04] MEDS: FERROUS SULFATE 325 MG TABEC PO SCH ×2 (08:47→16:49)
[2018-12-04] MEDS: METFORMIN HCL 500 MG TABLET PO SCH ×2 (08:47→17:01)
[2018-12-04] MEDS: ATORVASTATIN 20 MG TABLET PO SCH (08:47)
[2018-12-04] MEDS: chlorproMAZINE 25 MG TABLET PO SCH ×2 (08:47→20:18)
[2018-12-04] MEDS: PROPRANOLOL HCL 20 MG TABLET PO SCH ×2 (08:48→16:53)
[2018-12-04] MEDS: CALCIUM CARB/VITAMIN D 500MG-200UNITS TABLET PO SCH (08:49)
[2018-12-04] MEDS: VALSARTAN 160 MG TABLET PO SCH (08:49)
[2018-12-04] MEDS: IBUPROFEN 600 MG TABLET PO PRN ×2 (08:51→20:17)
[2018-12-04] MEDS: SERTRALINE HCL 100 MG TABLET PO SCH (09:50)
[2018-12-04 16:00] VITALS: BP 100/50
[2018-12-04] MEDS: CLOTRIMAZOLE 1% CREAM 30 GM TUBE TOP SCH (16:51)
[2018-12-04] MEDS: ERGOCALCIFEROL 50,000 UNIT CAPSULE PO SCH (20:17)
[2018-12-04 20:44] VITALS: BP 116/60
[2018-12-05] MEDS: MAG HYDROX/AL HYDROX/SIMETH 30 ML LIQUID UDC PO PRN ×2 (04:34→18:56)
[2018-12-05] MEDS: IBUPROFEN 600 MG TABLET PO PRN ×2 (04:34→16:49)
--- NOTE | 2018-12-05 06:20 | NUR ---
Patient slept 9.30 hours. Still asleep at this time. No distress noted.
[2018-12-05] MEDS: PANTOPRAZOLE SODIUM 40 MG TABLET.DR PO SCH (06:34)
[2018-12-05] MEDS: SUCRALFATE 1 G TABLET PO SCH ×3 (06:34→16:43)
[2018-12-05] MEDS: BLOOD SUGAR DIAGNOSTIC 1 EACH STRIP VI SCH (06:40)
[2018-12-05 07:56] VITALS: BP 101/43
[2018-12-05] MEDS: PROPRANOLOL HCL 20 MG TABLET PO SCH ×2 (09:00→16:45)
[2018-12-05] MEDS: VALSARTAN 160 MG TABLET PO SCH (09:00)
[2018-12-05] MEDS: LINAGLIPTIN 5 MG TABLET PO SCH (09:04)
[2018-12-05] MEDS: ATORVASTATIN 20 MG TABLET PO SCH (09:04)
[2018-12-05] MEDS: OMEGA-3 FATTY ACIDS/FISH OIL CAPSULE PO SCH (09:04)
[2018-12-05] MEDS: METFORMIN HCL 500 MG TABLET PO SCH ×2 (09:04→17:05)
[2018-12-05] MEDS: SERTRALINE HCL 100 MG TABLET PO SCH (09:04)
[2018-12-05] MEDS: FERROUS SULFATE 325 MG TABEC PO SCH ×2 (09:04→16:43)
[2018-12-05] MEDS: MAGNESIUM OXIDE 400 MG TABLET PO SCH ×2 (09:04→16:44)
[2018-12-05] MEDS: CALCIUM CARB/VITAMIN D 500MG-200UNITS TABLET PO SCH (09:04)
[2018-12-05] MEDS: chlorproMAZINE 25 MG TABLET PO SCH ×2 (09:04→20:01)
[2018-12-05] MEDS: CLOTRIMAZOLE 1% CREAM 30 GM TUBE TOP SCH ×2 (09:05→16:44)
[2018-12-05 16:30] VITALS: BP 119/58
[2018-12-05 20:44] VITALS: BP 131/62
[2018-12-05] MEDS: TEMAZEPAM 7.5 MG CAPSULE PO PRN (21:44)
[2018-12-06] MEDS: BLOOD SUGAR DIAGNOSTIC 1 EACH STRIP VI SCH (06:00)
[2018-12-06] MEDS: SUCRALFATE 1 G TABLET PO SCH ×3 (06:01→16:18)
[2018-12-06] MEDS: PANTOPRAZOLE SODIUM 40 MG TABLET.DR PO SCH (06:01)
--- NOTE | 2018-12-06 06:12 | NUR ---
Patient slept 9 hours and is still asleep. Uneventful night. No distress noted.
[2018-12-06 07:52] VITALS: BP 100/50
[2018-12-06] MEDS: CLOTRIMAZOLE 1% CREAM 30 GM TUBE TOP SCH ×2 (08:07→16:25)
[2018-12-06] MEDS: MAGNESIUM OXIDE 400 MG TABLET PO SCH ×2 (08:45→16:18)
[2018-12-06] MEDS: ATORVASTATIN 20 MG TABLET PO SCH (08:46)
[2018-12-06] MEDS: chlorproMAZINE 25 MG TABLET PO SCH ×2 (08:46→20:20)
[2018-12-06] MEDS: METFORMIN HCL 500 MG TABLET PO SCH ×2 (08:46→17:09)
[2018-12-06] MEDS: CALCIUM CARB/VITAMIN D 500MG-200UNITS TABLET PO SCH (08:46)
[2018-12-06] MEDS: VALSARTAN 160 MG TABLET PO SCH (08:46)
[2018-12-06] MEDS: SERTRALINE HCL 100 MG TABLET PO SCH (08:46)
[2018-12-06] MEDS: FERROUS SULFATE 325 MG TABEC PO SCH ×2 (08:46→16:18)
[2018-12-06] MEDS: LINAGLIPTIN 5 MG TABLET PO SCH (08:46)
[2018-12-06] MEDS: OMEGA-3 FATTY ACIDS/FISH OIL CAPSULE PO SCH (08:46)
[2018-12-06] MEDS: PROPRANOLOL HCL 20 MG TABLET PO SCH ×2 (08:47→16:25)
[2018-12-06 16:49] VITALS: BP 145/77
[2018-12-06 20:20] VITALS: BP 118/66
[2018-12-06] MEDS: IBUPROFEN 600 MG TABLET PO PRN (20:25)
[2018-12-06] MEDS: MAG HYDROX/AL HYDROX/SIMETH 30 ML LIQUID UDC PO PRN (22:31)
--- NOTE | 2018-12-06 22:47 | NUR ---
RECEIVED PATIENT IN BED.PLEASANT UPON APPROACH.COOPERATIVE WITH MEDS AND CARE.DENIES A/H.OFFERED MYLANTA PO, PRN FOR ABDOMINAL DISCOMFORT AND UPSET.VISUAL CHECKS MADE ON HER FOR SAFETY.WILL CONTINUE TO MONITOR.
[2018-12-07] MEDS: SUCRALFATE 1 G TABLET PO SCH ×2 (06:11→12:59)
[2018-12-07] MEDS: PANTOPRAZOLE SODIUM 40 MG TABLET.DR PO SCH (06:12)
[2018-12-07] MEDS: BLOOD SUGAR DIAGNOSTIC 1 EACH STRIP VI SCH (06:35)
--- NOTE | 2018-12-07 06:41 | NUR ---
SLEPT WELL.APPROX,08;00HRS.SHOWER TAKEN.BLOOD SUGAR CHECK 123.
[2018-12-07 08:30] VITALS: BP 123/77
[2018-12-07 09:25] VITALS: BP 123/71
[2018-12-07] MEDS: CALCIUM CARB/VITAMIN D 500MG-200UNITS TABLET PO SCH (09:25)
[2018-12-07] MEDS: PROPRANOLOL HCL 20 MG TABLET PO SCH (09:25)
[2018-12-07] MEDS: VALSARTAN 160 MG TABLET PO SCH (09:25)
[2018-12-07] MEDS: FERROUS SULFATE 325 MG TABEC PO SCH (09:25)
[2018-12-07] MEDS: METFORMIN HCL 500 MG TABLET PO SCH (09:25)
[2018-12-07] MEDS: LINAGLIPTIN 5 MG TABLET PO SCH (09:25)
[2018-12-07] MEDS: SERTRALINE HCL 100 MG TABLET PO SCH (09:25)
[2018-12-07] MEDS: CLOTRIMAZOLE 1% CREAM 30 GM TUBE TOP SCH (09:26)
[2018-12-07] MEDS: ATORVASTATIN 20 MG TABLET PO SCH (09:26)
[2018-12-07] MEDS: OMEGA-3 FATTY ACIDS/FISH OIL CAPSULE PO SCH (09:26)
[2018-12-07] MEDS: MAGNESIUM OXIDE 400 MG TABLET PO SCH (09:26)
[2018-12-07] MEDS: chlorproMAZINE 25 MG TABLET PO SCH (09:26)
--- NOTE | 2018-12-07 10:45 | NUR ---
GPS: Nursing Notes: Refusing Picture Taken: Patient refused for picture to be taken of her inner thighs, continue with her discharge planning.
--- NOTE | 2018-12-07 11:31 | NUR ---
Discharge Note: Patient will be discharged home [[address], [address], [place] [address]; Ph. [phone]]. Patient�s [facility]H[employer] caregiver � Shelli [[phone]] will provide transportation for patient at 1:00pm. Patient is alert and oriented x3-4, and is aware and agreeable with discharge plan. Clerical Aide Teacher spoke with patient�s sister � Jackie Estevez [[phone]] who is aware and agreeable with discharge plan. Patient was provided referral to [facility] [[address], [address], [place] [address]; Ph. [phone]] and was scheduled to see Dr. Jim Gamez at [facility] on Friday, Dec 13, 2018 at 9:15am . A continuing care packet has been sent to [facility] ATTN: Angelina [[phone]]. Patient was also provided with outpatient mental health resources to [facility]
--- NOTE | 2018-12-07 13:15 | NUR ---
GPS: Nursing Notes: Discharge Notes: Patient is awake and responding to her name, cooperative with nursing care, compliant with her medications, following staff directions, denies any SI/HI, denies any AH/VH, denies any pain or discomfort, denies any SOB, discharge home with caregiver - Shelli at [id number] [place] [address] [address], [place] [address] , instructions and prescriptions given to patient and caregiver, took all her belongings with her. Field Reimbursement Manager spoke with patient�s sister � Jackie Estevez [[phone]] who is aware and agreeable with discharge plan. Patient was provided referral to [facility] [[address], [address], [place] [address]; Ph. [phone]] and was scheduled to see Dr. Jim Gamez at [facility] on Friday, Dec 13, 2018 at 9:15am . A continuing care packet has been sent to [facility] ATTN: Angelina [[phone]]. Patient was also provided with outpatient mental health resources to [facility] Crisis [facility]
--- NOTE | 2018-12-07 15:38 | NUR ---
FIREARMS REPORT: Suture Polisher completed and submitted a [employer] firearms report for [address] Disability certification. A copy of report has been placed in patient chart.
== END 2018-12-07 13:15 | disposition home or self-care (01) | DRG 885 ==
LOC: ER 12:55 → GPS 19:08
PROVIDERS: ADMIT Psychiatry & Neurology Psychiatry; ATTEND Registered Nurse
DX: F25.9 Schizoaffective disorder, unspecified (principal); N39.0 Urinary tract infection, site not specified; G93.40 Encephalopathy, unspecified; F42.9 Obsessive-compulsive disorder, unspecified; J45.909 Unspecified asthma, uncomplicated; Z79.51 Long term (current) use of inhaled steroids; Z79.84 Long term (current) use of oral hypoglycemic drugs; E78.5 Hyperlipidemia, unspecified; E11.42 Type 2 diabetes mellitus with diabetic polyneuropathy; E66.01 Morbid (severe) obesity due to excess calories; Z68.34 Body mass index [BMI] 34.0-34.9, adult; Z71.3 Dietary counseling and surveillance; F41.9 Anxiety disorder, unspecified; G89.29 Other chronic pain; I25.2 Old myocardial infarction; B95.1 Streptococcus, group B, as the cause of diseases classified elsewhere; E11.39 Type 2 diabetes mellitus with other diabetic ophthalmic complication; Z98.1 Arthrodesis status; I11.9 Hypertensive heart disease without heart failure; E86.0 Dehydration; D50.9 Iron deficiency anemia, unspecified; Z88.2 Allergy status to sulfonamides; Z88.1 Allergy status to other antibiotic agents; Z91.041 Radiographic dye allergy status; Z91.013 Allergy to seafood; H54.7 Unspecified visual loss
CPT/HCPCS: 36415; 70030-TC; 80307; 83735; 84100; 84443; 85025; 87077; 87086; 93005; A4663; G0480; G0480-TC; J1815; Q0161; Q0162

== ENCOUNTER 2018-12-24 21:40 | Inpatient (IN) | payer MEDICARE, OTHER ==
[~2018-12-24] VITALS: Ht 167.6 cm; Wt 94.3 kg
[~2018-12-24 21:40] MED LIST changes: -LORA0.5T PO
--- NOTE | 2018-12-24 22:00 | NUR ---
Patient ambulated with stable gait. A/Ox4. Speech is clear, speaks in complete sentences. No neuro deficits. Patient came for c/o n/v/d x2 days. Respiratory even and unlabored no cough no sob. Patient is diaphoretic, and clammy. Patient in bed at lowest position sr upx2, call light within reach. Fall precautions implemented per protocol. Caregiver bedside accompanying patient.
[2018-12-24] MEDS ORDERED: IV NORMAL SALINE 1000 ML BAG IV ONE (22:15)
[2018-12-24] MEDS ORDERED: ONDANSETRON 4 MG/2 ML VIAL IV ONE (22:15)
[2018-12-24] MEDS ORDERED: KETOROLAC TROMETHAMINE 15 MG INJ IVP ONE (22:15)
[2018-12-24 22:39] LABS: BASOPHILS % (AUTO) 0.1 % (0.0-2.0); EOSINOPHILS % (AUTO) 0.3 % (0.0-7.0); HEMATOCRIT 44.1 % (31.2-41.9); HEMOGLOBIN 13.9 g/dL (10.9-14.3); LYMPHOCYTES # (AUTO) 0.8 K/uL (20.0-40.0); LYMPHOCYTES % (AUTO) 7.4 % (20.5-51.5); MEAN CORPUSCULAR HEMOGLOBIN 27.4 uug (24.7-32.8); MEAN CORPUSCULAR HGB CONC 31 g/dL (32.3-35.6); MEAN CORPUSCULAR VOLUME 87.1 fL (75.5-95.3); MONOCYTES # (AUTO) 0.6 K/uL (2.0-10.0); MONOCYTES % (AUTO) 4.9 % (0.0-11.0); NEUTROPHILS # (AUTO) 9.9 K/uL (1.8-8.9); NEUTROPHILS % (AUTO) 87.3 % (38.5-71.5); PLATELET COUNT (AUTO) 247 K/uL (179-408); RED BLOOD CELL COUNT(AUTO) 5.07 MIL/uL (3.63-4.92); WHITE BLOOD COUNT (AUTO) 11.3 K/uL (3.8-11.8)
[2018-12-24 22:48] LABS: BILIRUBIN,DIRECT 0.1 mg/dL (0.0-0.2); BILIRUBIN,TOTAL 0.2 mg/dL (0.2-1.0); CREATININE 2.3 mg/dL (0.6-1.3); POTASSIUM 4.6 mmol/L (3.5-5.1); TOTAL PROTEIN, SERUM 8.8 g/dL (6.4-8.2)
--- NOTE | 2018-12-24 23:00 | NUR ---
Patient in bed resting, NAD
[2018-12-24] MEDS ORDERED: KETOROLAC TROMETHAMINE 15 MG INJ ONE (23:08)
[2018-12-24] MEDS ORDERED: ONDANSETRON 4 MG/2 ML VIAL ONE (23:09)
[2018-12-25] VITALS (8 sets, daily range): BP systolic 109–146; BP diastolic 52–72
[2018-12-25 00:15] LABS: *BILIRUBIN,URIN NEGATIVE (NEGATIVE); *BLOOD, URINE NEGATIVE (NEGATIVE); *COLOR,URINE YELLOW (YELLOW); *KETONES,URINE TRACE (NEGATIVE); *UROBILINOGEN,URINE 0.2 E.U./dl (NORMAL); LEUKOCYTE ESTERASE ,URINE 1+ (NEGATIVE); NITRITE, URINE NEGATIVE (NEGATIVE); UGLUCOSE TRACE (NEGATIVE)
[2018-12-25 00:18] LABS: *CLARITY,URINE HAZY (CLEAR)
[2018-12-25] MEDS ORDERED: NAPR-1009 PO (00:21)
[2018-12-25] MEDS ORDERED: DIAZ5TAB4 PO (00:21)
[2018-12-25] MEDS ORDERED: VORT10TA PO (00:21)
[2018-12-25] MEDS ORDERED: SERT100T12 PO (00:21)
[2018-12-25] MEDS ORDERED: CHLO25TA23 PO (00:21)
[2018-12-25] MEDS ORDERED: ASPI81TA31 PO (00:21)
[2018-12-25] MEDS ORDERED: ONDA4TAB11 PO (00:21)
[2018-12-25] MEDS ORDERED: METO-356 PO (00:21)
[2018-12-25] MEDS ORDERED: ICOS1CAP PO (00:21)
[2018-12-25] MEDS ORDERED: ESOM40CA PO (00:21)
[2018-12-25] MEDS ORDERED: CYAN-51 PO (00:21)
[2018-12-25] MEDS ORDERED: BETH50TA8 PO (00:21)
[2018-12-25 00:22] LABS: BACTERIA,URINE MODERATE /HPF (NONE SEEN); RBC,URINE 0-3 /HPF (0-3)
[2018-12-25 00:23] LABS: SQUAMOUS EPITHELIAL CELL,UR FEW /HPF (NONE SEEN)
--- NOTE | 2018-12-25 00:26 | NUR ---
EPIC panel call placed, awaiting call back from Dr. Aceves
[2018-12-25] MEDS ORDERED: CEFTRIAXONE 1 G in IV DEXTROSE 5% 50 ML IV ONE (00:30)
--- NOTE | 2018-12-25 00:41 | NUR ---
KADIE on the phone with Dr. Aceves discussing patient case.
[2018-12-25] MEDS ORDERED: CEFTRIAXONE /D5W 50ML IVPB **ER PYXIS IV ONE (00:44)
[2018-12-25] MEDS ORDERED: Z GUARD REMEDY PASTE 57 GM TUBE TOP PRN (00:45)
[2018-12-25] MEDS ORDERED: ONDANSETRON 4 MG/2 ML VIAL IV PRN (00:45)
--- NOTE | 2018-12-25 01:30 | NUR ---
Admitted a 53y/o Female under the care of Dr. Mays. Admitting dx: Pancreatitis. Patient is A&Ox4, noted ambulatory. Oriented patient to her room. IV site on R AC intact and patent. No complaints of pain at this time, no n/v. Admission protocol followed. Safety measures observed. Call light within reach
--- NOTE | 2018-12-25 01:37 | NUR ---
Transported to [place] in stable condition.
[2018-12-25] MEDS: IV 1/2NS 1000 ML 1,000 ML IV PRN ×3 (01:47→21:42)
[2018-12-25] MEDS: METRONIDAZOLE 500 MG/NS 100ML 500 MG in PREMIXED 1 EACH IV SCH ×3 (02:35→17:35)
[2018-12-25] MEDS ORDERED: METRONIDAZOLE 500 MG/NS 100ML 100 ML IV ONE (02:36)
--- NOTE | 2018-12-25 06:36 | NUR ---
Patient slept well. No SOB noted. No complaints of n/v. All needs attended. Will endorse accordingly
[2018-12-25] MEDS: SERTRALINE HCL 100 MG TABLET PO SCH (08:44)
[2018-12-25] MEDS: METOPROLOL SUCCINATE XL 25 MG TAB.SR.24H PO SCH ×2 (08:44→17:07)
[2018-12-25] MEDS: CALCIUM CARB/VITAMIN D 500MG-200UNITS TABLET PO SCH (08:44)
[2018-12-25] MEDS: CYANOCOBALAMIN 1,000 MCG TABLET PO SCH ×2 (08:44→17:07)
[2018-12-25] MEDS: DIAZEPAM 5 MG TABLET PO SCH (08:44)
[2018-12-25] MEDS: chlorproMAZINE 25 MG TABLET PO SCH ×2 (08:44→17:07)
[2018-12-25] MEDS ORDERED: BETHANECHOL CHLORIDE 50 MG PO SCH (09:00)
[2018-12-25] MEDS ORDERED: VALSARTAN 160 MG TABLET PO SCH (09:00)
[2018-12-25] MEDS ORDERED: Medication Not On Formulary EA (Rosuvastatin Calcium (Crestor) 1 TAB) PO SCH (09:00)
[2018-12-25] MEDS ORDERED: Medication Not On Formulary EA (Dexlansoprazole (Dexilant) 30 MG) PO SCH (09:00)
[2018-12-25] MEDS: PANTOPRAZOLE SODIUM 40 MG TABLET.DR PO SCH (10:18)
[2018-12-25] MEDS: LINAGLIPTIN 5 MG TABLET PO SCH (10:18)
[2018-12-25] MEDS: HYDROMORPHONE 1 MG/1 ML DISP.SYRIN IV PRN ×2 (10:54→15:29)
[2018-12-25] MEDS ORDERED: DEXTROSE 50% 50 ML DISP.SYRIN IV PRN (12:00)
[2018-12-25] MEDS: BETHANECHOL CHLORIDE 25 MG TABLET PO SCH ×2 (12:25→17:07)
[2018-12-25 14:35] LABS: *BILIRUBIN,URIN NEGATIVE (NEGATIVE); *CLARITY,URINE CLOUDY (CLEAR); *COLOR,URINE YELLOW (YELLOW); *KETONES,URINE NEGATIVE (NEGATIVE); *UROBILINOGEN,URINE 0.2 E.U./dl (NORMAL); LEUKOCYTE ESTERASE ,URINE 3+ (NEGATIVE); NITRITE, URINE NEGATIVE (NEGATIVE); PH,URINE 5.5 (5.0-8.0); UGLUCOSE NEGATIVE (NEGATIVE)
[2018-12-25 15:13] LABS: *BLOOD, URINE TRACE (NEGATIVE)
[2018-12-25 15:14] LABS: BACTERIA,URINE MANY /HPF (NONE SEEN); SQUAMOUS EPITHELIAL CELL,UR MANY /HPF (NONE SEEN); WBC,URINE 80-100 /HPF (0-3)
[2018-12-25 15:56] LABS: *CREATININE,URINE 73.5 mg/dL (30-125); *URINE TOTAL PROTEIN RANDOM 26.9 mg/dL (<150/24HR)
[2018-12-25] MEDS: BLOOD SUGAR DIAGNOSTIC 1 EACH STRIP VI SCH ×2 (16:51→20:53)
[2018-12-25] MEDS: INSULIN REGULAR, HUMAN 300 UNIT/3 ML VIAL SQ PRN (17:13)
--- NOTE | 2018-12-25 17:30 | NUR ---
End of Shift Patient alert and oriented, ambulatory. No distress noted. PRN dilaudid given for abdominal pain, resolved. Okay to have ice chips per SHOP ASSISTANT Esdras. Continues on IV fluid hydration and IV antibiotics. Urine specimen collected today. Advanced to clear liquids tolerating well. Accuchecks started today, insulin following sliding scale.
--- NOTE | 2018-12-25 19:45 | NUR ---
Received patient awake in bed, not in any form of distress. Noted with IV fluid infusing well on access on the left antecubital vein. No complaints of abdominal pain at the moment. Patient is requesting to have shower tonight, will prepare shower for her. Noted diet advanced to clear liquids, tolerated. Patient inquiring if she can eat at least a sandwich, patient informed that only clear liquids for now as ordered by medical provider to which patient verbalized understanding. Bed in low position, locked, side rails up x 2 for safety. Will continue to monitor.
[2018-12-25] MEDS: ATORVASTATIN 20 MG TABLET PO SCH (20:49)
[2018-12-25] MEDS: INSULIN REGULAR, HUMAN 300 UNITS/3 ML VIAL SQ PRN (20:55)
[2018-12-25] MEDS: CEFTRIAXONE 1 G in IV DEXTROSE 5% 50 ML IV SCH (23:48)
[2018-12-26] MEDS: METRONIDAZOLE 500 MG/NS 100ML 500 MG in PREMIXED 1 EACH IV SCH ×3 (02:08→18:09)
[2018-12-26 05:41] VITALS: BP 106/41
[2018-12-26] MEDS: PANTOPRAZOLE SODIUM 40 MG TABLET.DR PO SCH (06:36)
[2018-12-26] MEDS: BLOOD SUGAR DIAGNOSTIC 1 EACH STRIP VI SCH ×4 (06:36→20:48)
--- NOTE | 2018-12-26 06:40 | NUR ---
Patient slept well. No complaints made, no distress noted. Patient had shower last night. Attended all needs. Ensured safety and comfort.
[2018-12-26] MEDS: IV 1/2NS 1000 ML 1,000 ML IV PRN ×2 (07:04→20:49)
[2018-12-26] MEDS: HYDROMORPHONE 1 MG/1 ML DISP.SYRIN IV PRN ×5 (07:07→22:30)
--- NOTE | 2018-12-26 08:00 | NUR ---
received pt. alert oriented x4 resting in bed. Pt. has IV in R upper arm 18 gauge intact patent running fluids. Pt. is on room air and ambulatory. Pt. on clear liquid diet. Pt. denies SOB/ difficulty breathing. Pt. complaining of 9/10 pain in pancreas area that is radiating. Safety measures in place. call light within reach. Will continue to monitor pt.
[2018-12-26] MEDS: chlorproMAZINE 25 MG TABLET PO SCH ×2 (08:27→16:07)
[2018-12-26] MEDS: BETHANECHOL CHLORIDE 25 MG TABLET PO SCH ×3 (08:28→16:07)
[2018-12-26] MEDS: CALCIUM CARB/VITAMIN D 500MG-200UNITS TABLET PO SCH (08:28)
[2018-12-26] MEDS: DIAZEPAM 5 MG TABLET PO SCH (08:29)
[2018-12-26] MEDS: CYANOCOBALAMIN 1,000 MCG TABLET PO SCH ×2 (08:29→16:07)
[2018-12-26] MEDS: LINAGLIPTIN 5 MG TABLET PO SCH (08:29)
[2018-12-26] MEDS: SERTRALINE HCL 100 MG TABLET PO SCH (08:29)
[2018-12-26] MEDS: METOPROLOL SUCCINATE XL 25 MG TAB.SR.24H PO SCH ×2 (08:30→16:07)
[2018-12-26] MEDS: INSULIN REGULAR, HUMAN 300 UNIT/3 ML VIAL SQ PRN ×2 (08:33→12:43)
[2018-12-26] MEDS: TRINTELIX PO SCH (08:35)
[2018-12-26 09:07] LABS: BASOPHILS % (AUTO) 0.1 % (0.0-2.0); HEMATOCRIT 35.2 % (31.2-41.9); HEMOGLOBIN 11.6 g/dL (10.9-14.3); LYMPHOCYTES # (AUTO) 0.8 K/uL (20.0-40.0); LYMPHOCYTES % (AUTO) 6.3 % (20.5-51.5); MEAN CORPUSCULAR HEMOGLOBIN 28.7 uug (24.7-32.8); MEAN CORPUSCULAR HGB CONC 33 g/dL (32.3-35.6); MEAN CORPUSCULAR VOLUME 87.1 fL (75.5-95.3); MONOCYTES # (AUTO) 0.5 K/uL (2.0-10.0); MONOCYTES % (AUTO) 3.5 % (0.0-11.0); NEUTROPHILS # (AUTO) 11.6 K/uL (1.8-8.9); NEUTROPHILS % (AUTO) 90.1 % (38.5-71.5); PLATELET COUNT (AUTO) 210 K/uL (179-408); RED BLOOD CELL COUNT(AUTO) 4.04 MIL/uL (3.63-4.92); WHITE BLOOD COUNT (AUTO) 12.9 K/uL (3.8-11.8)
[2018-12-26 09:21] LABS: BILIRUBIN,TOTAL 0.1 mg/dL (0.2-1.0); CREATININE 1.1 mg/dL (0.6-1.3); PHOSPHOROUS 2.2 mg/dL (2.5-4.9); POTASSIUM 3.8 mmol/L (3.5-5.1); TOTAL PROTEIN, SERUM 6.5 g/dL (6.4-8.2)
[2018-12-26 09:28] LABS: THYROID STIMULATING HORMONE 0.4 mIU/mL (0.358-3.740)
--- NOTE | 2018-12-26 09:30 | NUR ---
Received critical lab value of glucose 338 and Mg. 1.0 from lab this morning. Contacted Greg PAIGE regarding critical lab values.
--- NOTE | 2018-12-26 09:46 | NUR ---
Regarding critical lab value order to give regular insulin subq and 4 g of magnesium now. repeat magnesium at 1800. Will put in order and give to pt. Will continue to monitor pt.
[2018-12-26] MEDS ORDERED: INSULIN REGULAR, HUMAN 300 UNIT/3 ML VIAL SQ STA (09:49)
[2018-12-26] MEDS ORDERED: MAGNESIUM SULFATE IV ONE (10:00)
[2018-12-26] MEDS ORDERED: INSULIN REGULAR, HUMAN 300 UNIT/3 ML VIAL SQ ONE (10:00)
[2018-12-26] MEDS ORDERED: DEXTROSE 5% IV ONE (10:00)
[2018-12-26] MEDS: MAGNESIUM SULFATE/D5W 100 ML IV SCH ×4 (10:14→15:25)
[2018-12-26] MEDS ORDERED: NEUTRA PHOS PACKET PO ONE (11:15)
--- NOTE | 2018-12-26 11:24 | NUR ---
Unable to give pt. flagyl antibiotics due to only one IV line available as it is running Magnesium. According to pharmacy not compatible to run together. Awaiting Midline. MEDICAL DEVICE ENGINEER, charge nurse are aware.
[2018-12-26 11:44] VITALS: BP 103/52
[2018-12-26 15:52] VITALS: BP 121/57
--- NOTE | 2018-12-26 18:39 | NUR ---
Pt. compliant with medication and plan of care. All medications given. Pt. on NPO diet. Safety measures in place. Call light within reach. Will continue to monitor pt. and endorse to PM nurse.
--- NOTE | 2018-12-26 19:33 | NUR ---
Received patient awake in bed, in severe abdominal pain at the moment, prn pain medication given. Noted with IV fluid infusing well on new midline access on the left upper arm. Will maintain patient on NPO as ordered due to recurrent abdominal pain complaints. Will continue to monitor. Bed in low position, locked, side rails up x 2 for safety.
[2018-12-26 19:52] VITALS: BP 140/68
[2018-12-26] MEDS: ATORVASTATIN 20 MG TABLET PO SCH (20:46)
--- NOTE | 2018-12-26 21:26 | NUR ---
Noted patient diaphoretic and feeling very cold, oral temperature is 97.4F, checked rectal temperature 99.4F. Still with abdominal pain. Will continue to monitor.
[2018-12-27] MEDS: CEFTRIAXONE 1 G in IV DEXTROSE 5% 50 ML IV SCH (00:46)
[2018-12-27] MEDS: METRONIDAZOLE 500 MG/NS 100ML 500 MG in PREMIXED 1 EACH IV SCH ×3 (01:33→17:11)
[2018-12-27 04:00] VITALS: BP 123/63
[2018-12-27] MEDS: HYDROMORPHONE 1 MG/1 ML DISP.SYRIN IV PRN ×2 (04:54→10:04)
--- NOTE | 2018-12-27 05:59 | NUR ---
Patient slept intermittently. With abdominal pain, prn pain medication given. Noted patient no longer diaphoretic and chills resolved. Afebrile throughout the shift. Attended all needs. Ensured safety and comfort.
[2018-12-27 06:27] LABS: BASOPHILS % (AUTO) 0.1 % (0.0-2.0); EOSINOPHILS % (AUTO) 0.2 % (0.0-7.0); HEMATOCRIT 37.1 % (31.2-41.9); HEMOGLOBIN 11.8 g/dL (10.9-14.3); LYMPHOCYTES # (AUTO) 1.1 K/uL (20.0-40.0); LYMPHOCYTES % (AUTO) 8.6 % (20.5-51.5); MEAN CORPUSCULAR HEMOGLOBIN 27.2 uug (24.7-32.8); MEAN CORPUSCULAR HGB CONC 32 g/dL (32.3-35.6); MEAN CORPUSCULAR VOLUME 85.4 fL (75.5-95.3); MONOCYTES # (AUTO) 1.1 K/uL (2.0-10.0); NEUTROPHILS % (AUTO) 83.1 % (38.5-71.5); PLATELET COUNT (AUTO) 220 K/uL (179-408); RED BLOOD CELL COUNT(AUTO) 4.34 MIL/uL (3.63-4.92); WHITE BLOOD COUNT (AUTO) 13.3 K/uL (3.8-11.8)
[2018-12-27] MEDS: PANTOPRAZOLE SODIUM 40 MG TABLET.DR PO SCH (06:30)
[2018-12-27] MEDS: BLOOD SUGAR DIAGNOSTIC 1 EACH STRIP VI SCH ×4 (06:30→20:15)
[2018-12-27 06:31] LABS: CREATININE 0.9 mg/dL (0.6-1.3); MAGNESIUM 1.7 mg/dL (1.8-2.4); PHOSPHOROUS 2.4 mg/dL (2.5-4.9); POTASSIUM 4.1 mmol/L (3.5-5.1)
--- NOTE | 2018-12-27 07:30 | NUR ---
Patient calm and comfortable resting in bed with no signs of distress; patient will continue to be monitored.
[2018-12-27] MEDS ORDERED: NEUTRA PHOS PACKET PO ONE (07:45)
[2018-12-27] MEDS ORDERED: MAGNESIUM SULFATE/D5W 100 ML IV SCH (07:45)
[2018-12-27] MEDS: CALCIUM CARB/VITAMIN D 500MG-200UNITS TABLET PO SCH (08:30)
[2018-12-27] MEDS ORDERED: BISACODYL 5 MG TABLET.DR PO ONE (08:30)
[2018-12-27] MEDS: LINAGLIPTIN 5 MG TABLET PO SCH (08:31)
[2018-12-27] MEDS: CYANOCOBALAMIN 1,000 MCG TABLET PO SCH ×2 (08:31→17:11)
[2018-12-27] MEDS: METOPROLOL SUCCINATE XL 25 MG TAB.SR.24H PO SCH ×2 (08:35→17:12)
[2018-12-27] MEDS: SERTRALINE HCL 100 MG TABLET PO SCH (08:36)
[2018-12-27] MEDS: chlorproMAZINE 25 MG TABLET PO SCH ×2 (08:36→17:11)
[2018-12-27] MEDS: BETHANECHOL CHLORIDE 25 MG TABLET PO SCH ×3 (08:36→17:11)
[2018-12-27] MEDS: DIAZEPAM 5 MG TABLET PO SCH (08:37)
[2018-12-27] MEDS: IV 1/2NS 1000 ML 1,000 ML IV PRN ×2 (08:38→20:00)
[2018-12-27] MEDS: TRINTELIX PO SCH (08:39)
[2018-12-27 11:02] VITALS: BP 117/49
[2018-12-27] MEDS: INSULIN REGULAR, HUMAN 300 UNIT/3 ML VIAL SQ PRN (11:58)
[2018-12-27 15:04] VITALS: BP 141/62
--- NOTE | 2018-12-27 18:58 | NUR ---
Patient has been calm and comfortable with no signs of distress; patient with stable vital signs ; medication compliant ; Report given to oncoming nurse.
--- NOTE | 2018-12-27 19:30 | NUR ---
PATIENT ALERT ORIENTED, NO SOB NO CHEST PAIN. PATIENT ON TELE MONITOR SINUS RHYTHM. PATIENT HAS NO COMPLAIN OF PAIN AT THIS TIME. PATIENT HAS NO COMPLAIN OF NAUSEA NO VOMITING NOTED. CONT TO MONITOR.
[2018-12-27 20:05] VITALS: BP 117/47
[2018-12-27] MEDS: ATORVASTATIN 20 MG TABLET PO SCH (20:05)
[2018-12-27] MEDS: INSULIN REGULAR, HUMAN 300 UNITS/3 ML VIAL SQ PRN (20:31)
[2018-12-28] MEDS: CEFTRIAXONE 1 G in IV DEXTROSE 5% 50 ML IV SCH (01:22)
[2018-12-28] MEDS: METRONIDAZOLE 500 MG/NS 100ML 500 MG in PREMIXED 1 EACH IV SCH ×2 (01:58→10:35)
[2018-12-28 05:03] VITALS: BP 120/52
[2018-12-28] MEDS: BLOOD SUGAR DIAGNOSTIC 1 EACH STRIP VI SCH ×3 (06:03→16:55)
[2018-12-28] MEDS: PANTOPRAZOLE SODIUM 40 MG TABLET.DR PO SCH (06:03)
[2018-12-28 06:37] LABS: BASOPHILS % (AUTO) 0.3 % (0.0-2.0); CREATININE 0.9 mg/dL (0.6-1.3); EOSINOPHILS # (AUTO) 0.2 K/uL (0.0-0.7); EOSINOPHILS % (AUTO) 1.3 % (0.0-7.0); HEMATOCRIT 37.2 % (31.2-41.9); HEMOGLOBIN 11.9 g/dL (10.9-14.3); LYMPHOCYTES # (AUTO) 1.6 K/uL (20.0-40.0); LYMPHOCYTES % (AUTO) 13.7 % (20.5-51.5); MEAN CORPUSCULAR HEMOGLOBIN 27.5 uug (24.7-32.8); MEAN CORPUSCULAR HGB CONC 32 g/dL (32.3-35.6); MEAN CORPUSCULAR VOLUME 85.8 fL (75.5-95.3); MONOCYTES # (AUTO) 1.3 K/uL (2.0-10.0); MONOCYTES % (AUTO) 10.7 % (0.0-11.0); NEUTROPHILS # (AUTO) 8.7 K/uL (1.8-8.9); PLATELET COUNT (AUTO) 214 K/uL (179-408); POTASSIUM 3.8 mmol/L (3.5-5.1); RED BLOOD CELL COUNT(AUTO) 4.34 MIL/uL (3.63-4.92); WHITE BLOOD COUNT (AUTO) 11.8 K/uL (3.8-11.8)
--- NOTE | 2018-12-28 06:49 | NUR ---
PATIENT ALERT ORIENTED, NO SOB NO CHEST PAIN. PATIENT ON CLEAR LIQUID DIET, TOLERATE WELL NO FURTHER EPISODE OF NAUSEA/VOMITING NOTED. PATIENT DENIES PAIN AT THIS TIME. CONT TO MONITOR.
[2018-12-28 07:44] LABS: MAGNESIUM 1.2 mg/dL (1.8-2.4)
[2018-12-28 08:10] LABS: A/G RATIO 0.9 (0.7-1.7); ALBUMIN 2.8 g/dL (2.9-4.4); ALPHA-1-GLOBULIN 0.2 g/dL (0.0-0.4); ALPHA-2-GLOBULIN 0.9 g/dL (0.4-1.0); BETA GLOBULIN 0.9 g/dL (0.7-1.3); GAMMA GLOBULIN 1.1 g/dL (0.4-1.8); GLOBULIN, TOTAL 3.1 g/dL (2.2-3.9); M-SPIKE Not Observed g/dL (Not Observed)
[2018-12-28] MEDS ORDERED: NEUTRA PHOS PACKET PO ONE (08:15)
[2018-12-28] MEDS: LINAGLIPTIN 5 MG TABLET PO SCH (08:23)
[2018-12-28] MEDS: BETHANECHOL CHLORIDE 25 MG TABLET PO SCH ×3 (08:24→17:32)
[2018-12-28] MEDS: chlorproMAZINE 25 MG TABLET PO SCH ×2 (08:24→17:31)
[2018-12-28] MEDS: METOPROLOL SUCCINATE XL 25 MG TAB.SR.24H PO SCH ×2 (08:24→17:31)
[2018-12-28] MEDS: CALCIUM CARB/VITAMIN D 500MG-200UNITS TABLET PO SCH (08:24)
[2018-12-28] MEDS: SERTRALINE HCL 100 MG TABLET PO SCH (08:25)
[2018-12-28] MEDS: CYANOCOBALAMIN 1,000 MCG TABLET PO SCH ×2 (08:25→17:32)
[2018-12-28] MEDS: DIAZEPAM 5 MG TABLET PO SCH (08:25)
[2018-12-28] MEDS: HYDROMORPHONE 1 MG/1 ML DISP.SYRIN IV PRN (08:27)
[2018-12-28] MEDS: TRINTELIX PO SCH (08:35)
[2018-12-28] MEDS ORDERED: CEPH500C2 PO (10:42)
[2018-12-28] MEDS: IV 1/2NS 1000 ML 1,000 ML IV PRN (10:55)
[2018-12-28] MEDS ORDERED: diphenhydrAMINE 25 MG CAP PO ONE (11:15)
[2018-12-28 11:37] VITALS: BP 132/66
[2018-12-28] MEDS: MAGNESIUM SULFATE/D5W 100 ML IV SCH ×4 (12:01→16:54)
[2018-12-28] MEDS: INSULIN REGULAR, HUMAN 300 UNIT/3 ML VIAL SQ PRN ×2 (12:40→17:01)
[2018-12-28 15:48] VITALS: BP 118/60
[2018-12-28 17:31] VITALS: BP 116/60
--- NOTE | 2018-12-28 18:00 | NUR ---
IV D/C'D. ALL HOME INSTRUCTIONS REVIEWED WITH PT. AND CAREGIVER. HOME MEDS REVIEWED, DIET RESTRICTIONS REVIEWED, PHARMACY AT BEDSIDE TO REVIEW NEW RX. ILLUSIONIST IN EARLIER TO INSTRUCT AND REVIEW ALL DIETARY RESTRICTIONS. BOTH PERIPHERAL AND MIDLINE IV'S D/C'D. DISCHARGED TO HOME CAREGIVER
== END 2018-12-28 18:10 | disposition home or self-care (01) | DRG 438 ==
LOC: ER 21:48 → MEDSURG3 12-25 01:13
PROVIDERS: ADMIT Nurse Practitioner Acute Care; ATTEND Nurse Practitioner Acute Care
PROC: 05H633Z Insertion of Infusion Device into Left Subclavian Vein, Percutaneous Approach (ICD-10-PCS; principal; 2018-12-26)
DX: K85.90 Acute pancreatitis without necrosis or infection, unspecified (principal); N17.0 Acute kidney failure with tubular necrosis; N39.0 Urinary tract infection, site not specified; E44.0 Moderate protein-calorie malnutrition; E86.0 Dehydration; E11.42 Type 2 diabetes mellitus with diabetic polyneuropathy; G89.4 Chronic pain syndrome; Z79.84 Long term (current) use of oral hypoglycemic drugs; Z79.82 Long term (current) use of aspirin; E83.42 Hypomagnesemia; E83.39 Other disorders of phosphorus metabolism; I10 Essential (primary) hypertension; M17.0 Bilateral primary osteoarthritis of knee; F41.9 Anxiety disorder, unspecified; F32.9 Major depressive disorder, single episode, unspecified; K76.0 Fatty (change of) liver, not elsewhere classified; E66.9 Obesity, unspecified; Z68.33 Body mass index [BMI] 33.0-33.9, adult; E88.09 Other disorders of plasma-protein metabolism, not elsewhere classified; D72.829 Elevated white blood cell count, unspecified; R32 Unspecified urinary incontinence; R15.9 Full incontinence of feces; E86.9 Volume depletion, unspecified
CPT/HCPCS: 36415; 70030-TC; 74018; 76700; 83690; 83735; 83970; 84100; 84155; 84156; 84165; 84300; 84443; 85025; 87086; 93005; A4663; G0378; J0696; J1170; J1815; J1885; J2405; J3475; J3490; J7030; J7050; J7060; Q0161; Q0163

== ENCOUNTER 2019-03-25 11:07 | Emergency (ER) | END 2019-03-25 12:48 | disposition home or self-care (01) | DX: R10.13 Epigastric pain (principal); E11.9 Type 2 diabetes mellitus without complications; F32.9 Major depressive disorder, single episode, unspecified; Z88.2 Allergy status to sulfonamides; Z88.1 Allergy status to other antibiotic agents; Z88.8 Allergy status to other drugs, medicaments and biological substances; Z91.013 Allergy to seafood; Z79.899 Other long term (current) drug therapy; Z79.82 Long term (current) use of aspirin ==

== ENCOUNTER 2019-04-27 09:49 | Emergency (ER) | payer MEDICARE, OTHER ==
[~2019-04-27] VITALS: Ht 167.6 cm; Wt 104.3 kg
[~2019-04-27 09:49] MED LIST changes: -ALBU8HFA4 HHN; +ASPI81TA31 PO; +BETH50TA8 PO; +CEPH500C2 PO; +CHLO25TA23 PO; +CYAN-51 PO; +DIAZ5TAB4 PO; -ERGO2000 PO; +ESOM40CA PO; -FERR325T28 PO; -FLUT1BLS IH; +ICOS1CAP PO; -LIFI1DRO OP; -MAGN400T26 PO; +METO-356 PO; +NAPR-1009 PO; -OMEG1CAP55 PO; +ONDA4TAB11 PO; -ONDA4TAB8 SL; -PANT40TA2 PO; -PROP20TA7 PO; +SERT100T12 PO; -SUCR1TAB31 PO; +VORT10TA PO
[2019-04-27] MEDS ORDERED: IV NORMAL SALINE 1000 ML BAG IV ONE (10:30)
[2019-04-27] MEDS ORDERED: ONDANSETRON 4 MG/2 ML VIAL IV ONE (10:30)
[2019-04-27] MEDS ORDERED: KETOROLAC TROMETHAMINE 15 MG INJ IVP ONE (10:30)
[2019-04-27] MEDS ORDERED: KETOROLAC TROMETHAMINE 30 MG INJ ONE (10:37)
[2019-04-27] MEDS ORDERED: ONDANSETRON 4 MG/2 ML VIAL ONE (10:37)
[2019-04-27 10:47] LABS: BASOPHILS # (AUTO) 0.1 K/uL (0.0-8.0); BASOPHILS % (AUTO) 0.6 % (0.0-2.0); EOSINOPHILS # (AUTO) 0.3 K/uL (0.0-0.7); HEMATOCRIT 42.8 % (31.2-41.9); HEMOGLOBIN 13.7 g/dL (10.9-14.3); LYMPHOCYTES # (AUTO) 1.7 K/uL (20.0-40.0); LYMPHOCYTES % (AUTO) 18.2 % (20.5-51.5); MEAN CORPUSCULAR HEMOGLOBIN 27.1 uug (24.7-32.8); MEAN CORPUSCULAR HGB CONC 32 g/dL (32.3-35.6); MEAN CORPUSCULAR VOLUME 84.4 fL (75.5-95.3); MONOCYTES # (AUTO) 0.9 K/uL (2.0-10.0); MONOCYTES % (AUTO) 9.3 % (0.0-11.0); NEUTROPHILS # (AUTO) 6.4 K/uL (1.8-8.9); NEUTROPHILS % (AUTO) 68.9 % (38.5-71.5); PLATELET COUNT (AUTO) 260 K/uL (179-408); RED BLOOD CELL COUNT(AUTO) 5.07 MIL/uL (3.63-4.92); WHITE BLOOD COUNT (AUTO) 9.3 K/uL (3.8-11.8)
[2019-04-27 10:49] LABS: *BILIRUBIN,URIN NEGATIVE (NEGATIVE); *BLOOD, URINE NEGATIVE (NEGATIVE); *CLARITY,URINE SLIGHTLY CLOUDY (CLEAR); *COLOR,URINE YELLOW (YELLOW); *KETONES,URINE NEGATIVE (NEGATIVE); *UROBILINOGEN,URINE 0.2 E.U./dl (NORMAL); LEUKOCYTE ESTERASE ,URINE NEGATIVE (NEGATIVE); NITRITE, URINE NEGATIVE (NEGATIVE); PH,URINE 5.5 (5.0-8.0); UGLUCOSE 2+ (NEGATIVE)
[2019-04-27 10:55] LABS: CREATININE 1.2 mg/dL (0.6-1.3); POTASSIUM 4.6 mmol/L (3.5-5.1)
--- NOTE | 2019-04-27 10:55 | NUR ---
Patient back in room from CT
[2019-04-27 11:02] LABS: BILIRUBIN,DIRECT 0.1 mg/dL (0.0-0.2); BILIRUBIN,TOTAL 0.3 mg/dL (0.2-1.0); TOTAL PROTEIN, SERUM 8.5 g/dL (6.4-8.2)
[2019-04-27 11:16] LABS: BACTERIA,URINE FEW /HPF (NONE SEEN); RBC,URINE 0-3 /HPF (0-3); SQUAMOUS EPITHELIAL CELL,UR MODERATE /HPF (NONE SEEN)
[2019-04-27 11:23] LABS: *URINE HCG, QUAL NEGATIVE (NEGATIVE)
[2019-04-27] MEDS ORDERED: EMPA10TA PO (12:18)
--- NOTE | 2019-04-27 12:31 | NUR ---
Patient discharged to home in stable conditon. Written and verbal after care instructions given. Patient verbalizes understanding of instructions. IV removed. Catheter intact and site benign. Pressure and 4x4 gauze applied to site. No bleeding noted. Patient ambulated with stable gait.
[2019-04-27 12:32] VITALS: BP 121/79
== END 2019-04-27 12:33 | disposition home or self-care (01) ==
LOC: ER 09:49
DX: K57.30 Diverticulosis of large intestine without perforation or abscess without bleeding (principal); K42.9 Umbilical hernia without obstruction or gangrene; N20.0 Calculus of kidney; J01.90 Acute sinusitis, unspecified; I10 Essential (primary) hypertension; E78.5 Hyperlipidemia, unspecified; E11.9 Type 2 diabetes mellitus without complications; Z88.2 Allergy status to sulfonamides; Z88.1 Allergy status to other antibiotic agents; Z91.013 Allergy to seafood; Z79.82 Long term (current) use of aspirin; Z79.899 Other long term (current) drug therapy
CPT/HCPCS: 36415; 71046; 74176; 80048; 80076; 81000; 81001; 83690; 83880; 84484; 84703; 85025; 87077; 87086; 87186; 96374; 96375; 99284; J1885; J2405; 70030-TC; A4663; J7030

== ENCOUNTER 2019-12-03 12:27 | Emergency (ER) | payer MEDICARE, OTHER ==
[~2019-12-03] VITALS: Ht 167.6 cm; Wt 90.7 kg
[~2019-12-03 12:27] MED LIST changes: -CEPH500C2 PO; -CYAN-51 PO; +EMPA10TA PO; -ESOM40CA PO; -NAPR-1009 PO; -ONDA4TAB11 PO; -SERT100T12 PO; -SITA100T PO; -VORT10TA PO
[2019-12-03 13:26] LABS: BASOPHILS # (AUTO) 0.1 K/uL (0.0-8.0); EOSINOPHILS # (AUTO) 0.4 K/uL (0.0-0.7); EOSINOPHILS % (AUTO) 3.7 % (0.0-7.0); HEMATOCRIT 40.6 % (31.2-41.9); HEMOGLOBIN 13.1 g/dL (10.9-14.3); LYMPHOCYTES % (AUTO) 19.5 % (20.5-51.5); MEAN CORPUSCULAR HEMOGLOBIN 26.7 uug (24.7-32.8); MEAN CORPUSCULAR HGB CONC 32 g/dL (32.3-35.6); MEAN CORPUSCULAR VOLUME 82.8 fL (75.5-95.3); MONOCYTES # (AUTO) 1.1 K/uL (2.0-10.0); MONOCYTES % (AUTO) 10.7 % (0.0-11.0); NEUTROPHILS # (AUTO) 6.7 K/uL (1.8-8.9); NEUTROPHILS % (AUTO) 65.1 % (38.5-71.5); PLATELET COUNT (AUTO) 270 K/uL (179-408); WHITE BLOOD COUNT (AUTO) 10.4 K/uL (3.8-11.8)
[2019-12-03 13:46] LABS: BILIRUBIN,DIRECT 0.1 mg/dL (0.0-0.2); BILIRUBIN,TOTAL 0.4 mg/dL (0.2-1.0); CREATININE 1.1 mg/dL (0.6-1.3); TOTAL PROTEIN, SERUM 7.7 g/dL (6.4-8.2)
--- NOTE | 2019-12-03 14:04 | NUR ---
Patient in bed at lowest position, vss, nad. Will continue to monitor.
--- NOTE | 2019-12-03 14:34 | NUR ---
Patient discharged to home in stable condition. Written and verbal after care instructions given. Patient verbalizes understanding of instructions. Stressed follow up or return to ER for worsening s/s. Patient ambulated with stable gait.
[2019-12-03 14:35] VITALS: BP 121/79
== END 2019-12-03 14:36 | disposition home or self-care (01) ==
LOC: ER 12:27
DX: F41.9 Anxiety disorder, unspecified (principal); R19.7 Diarrhea, unspecified; G31.84 Mild cognitive impairment of uncertain or unknown etiology; I10 Essential (primary) hypertension; E78.5 Hyperlipidemia, unspecified; F25.9 Schizoaffective disorder, unspecified; G89.4 Chronic pain syndrome; J45.909 Unspecified asthma, uncomplicated; E11.42 Type 2 diabetes mellitus with diabetic polyneuropathy; Z79.84 Long term (current) use of oral hypoglycemic drugs; Z79.82 Long term (current) use of aspirin; Z79.899 Other long term (current) drug therapy; Z88.2 Allergy status to sulfonamides; Z88.8 Allergy status to other drugs, medicaments and biological substances; Z88.1 Allergy status to other antibiotic agents; Z91.041 Radiographic dye allergy status; Z91.013 Allergy to seafood; Z98.1 Arthrodesis status
CPT/HCPCS: 36415; 70030-TC; 71045; 85025; 85730; 93005; A4663

== ENCOUNTER 2020-08-25 10:02 | Emergency (ER) | payer MEDICARE, OTHER ==
[~2020-08-25] VITALS: Ht 167.6 cm; Wt 95.3 kg
--- NOTE | 2020-08-25 10:11 | NUR ---
at bedside for assessment
[2020-08-25] MEDS ORDERED: BACITRACIN ZINC OINT 15 GM TUBE TOP STA (10:17)
[2020-08-25] MEDS ORDERED: BACITRACIN ZINC OINT 15 GM TUBE ONE (10:24)
[2020-08-25] MEDS ORDERED: KETOROLAC TROMETHAMINE 15 MG INJ ONE (10:25)
[2020-08-25] MEDS ORDERED: KETOROLAC TROMETHAMINE 15 MG INJ IM ONE (10:30)
--- NOTE | 2020-08-25 10:57 | NUR ---
Patient discharged to home in stable condition. Patient noted walking with steady gait. taken home by caregiver. Written and verbal after care instructions given. Patient verbalizes understanding of instructions. Stressed follow up or return to ER for worsening s/s.
[2020-08-25 11:02] VITALS: BP 137/87
== END 2020-08-25 11:03 | disposition home or self-care (01) ==
LOC: ER 10:02
DX: M72.2 Plantar fascial fibromatosis (principal); E11.621 Type 2 diabetes mellitus with foot ulcer; E11.42 Type 2 diabetes mellitus with diabetic polyneuropathy; L97.419 Non-pressure chronic ulcer of right heel and midfoot with unspecified severity; R45.1 Restlessness and agitation; Z79.84 Long term (current) use of oral hypoglycemic drugs; Z79.82 Long term (current) use of aspirin; Z88.6 Allergy status to analgesic agent; Z88.5 Allergy status to narcotic agent; Z88.2 Allergy status to sulfonamides; G89.4 Chronic pain syndrome; Z98.1 Arthrodesis status; I10 Essential (primary) hypertension; R78.5 Finding of other psychotropic drug in blood; J45.909 Unspecified asthma, uncomplicated; G31.84 Mild cognitive impairment of uncertain or unknown etiology
CPT/HCPCS: 96372; 99283; J1885; A4663

== ENCOUNTER 2021-02-17 15:38 | Emergency (ER) | payer MEDICARE, OTHER ==
[~2021-02-17] VITALS: Ht 165.1 cm; Wt 99.8 kg
[2021-02-17] MEDS ORDERED: TDAP DIPH,PERTUSS,TET VAC/PF 0.5 ML DISP.SYRIN IM ONE ×2 (18:00→18:08)
[2021-02-17 19:04] VITALS: BP 132/77
--- NOTE | 2021-02-17 19:04 | NUR ---
PT WAS EVALUATED BY DR HUERTA. PT WAS D/C'd TO HOME. PT WAS TRANSFERD TO HER LOCATION BY [employer] OFF[employer]ERS.
== END 2021-02-17 19:05 | disposition home or self-care (01) ==
LOC: ER 15:38
DX: S09.90XA Unspecified injury of head, initial encounter (principal); W01.0XXA Fall on same level from slipping, tripping and stumbling without subsequent striking against object, initial encounter; Y93.01 Activity, walking, marching and hiking; Y92.480 Sidewalk as the place of occurrence of the external cause; F25.9 Schizoaffective disorder, unspecified; I10 Essential (primary) hypertension; E78.5 Hyperlipidemia, unspecified; J45.909 Unspecified asthma, uncomplicated; E11.42 Type 2 diabetes mellitus with diabetic polyneuropathy; G89.4 Chronic pain syndrome; M54.50 Low back pain, unspecified; Z98.1 Arthrodesis status; Z88.2 Allergy status to sulfonamides; Z88.6 Allergy status to analgesic agent; Z88.1 Allergy status to other antibiotic agents; Z91.041 Radiographic dye allergy status; Z91.013 Allergy to seafood; Z79.84 Long term (current) use of oral hypoglycemic drugs; Z79.899 Other long term (current) drug therapy
CPT/HCPCS: 70450; 72125; 90715; A4663

== ENCOUNTER 2021-06-27 13:52 | Emergency (ER) | payer MEDICARE, OTHER ==
[~2021-06-27] VITALS: Ht 167.6 cm; Wt 113.4 kg
--- NOTE | 2021-06-27 13:55 | NUR ---
Dr Montiel at the bedside for MSE.
[2021-06-27] MEDS ORDERED: CEFTRIAXONE 1 G in IV DEXTROSE 5% 50 ML IV ONE (14:15)
[2021-06-27] MEDS ORDERED: IV NORMAL SALINE 500 ML BAG IV ONE (14:15)
[2021-06-27 14:18] LABS: *BILIRUBIN,URIN NEGATIVE (NEGATIVE); *BLOOD, URINE NEGATIVE (NEGATIVE); *CLARITY,URINE CLEAR (CLEAR); *COLOR,URINE YELLOW (YELLOW); *KETONES,URINE NEGATIVE (NEGATIVE); *UROBILINOGEN,URINE 0.2 E.U./dl (NORMAL); LEUKOCYTE ESTERASE ,URINE 1+ (NEGATIVE); NITRITE, URINE NEGATIVE (NEGATIVE); UGLUCOSE NEGATIVE (NEGATIVE)
[2021-06-27 14:45] LABS: RBC,URINE 0-3 /HPF (0-3)
[2021-06-27] MEDS ORDERED: CEFTRIAXONE /D5W 50ML IVPB **ER PYXIS IV ONE (14:45)
[2021-06-27 14:46] LABS: BACTERIA,URINE NONE SEEN /HPF (NONE SEEN); SQUAMOUS EPITHELIAL CELL,UR FEW /HPF (NONE SEEN)
[2021-06-27 14:48] LABS: HEMATOCRIT 41.9 % (31.2-41.9); MEAN CORPUSCULAR HEMOGLOBIN 27.9 uug (24.7-32.8); PLATELET COUNT (AUTO) 277 K/uL (179-408)
[2021-06-27 15:00] LABS: CARBON DIOXIDE 22 mmol/L (21-32); CHLORIDE 103 mmol/L (98-107); CREATININE 1.1 mg/dL (0.6-1.3); GLUCOSE 155 mg/dL (74-106); POTASSIUM 4.7 mmol/L (3.5-5.1); UREA NITROGEN, BLOOD 26 mg/dL (7-18)
[2021-06-27] MEDS ORDERED: PHENAZOPYRIDINE HCL 100 MG TABLET ONE (15:03)
[2021-06-27 15:09] LABS: ALANINE AMINOTRANSFERASE 37 U/L (14-59); ALKALINE PHOSPHATASE 102 U/L (50-136); ASPARTATE AMINOTRANSFERASE 29 U/L (15-37); BILIRUBIN,TOTAL 0.4 mg/dL (0.2-1.0); TOTAL PROTEIN, SERUM 8.1 g/dL (6.4-8.2)
[2021-06-27] MEDS ORDERED: PHENAZOPYRIDINE HCL 100 MG TABLET PO ONE (15:15)
[2021-06-27] MEDS ORDERED: NAPR220C15 PO (15:55)
[2021-06-27] MEDS ORDERED: LORA-259 PO (15:55)
[2021-06-27] MEDS ORDERED: PHEN99.5 PO (15:55)
[2021-06-27] MEDS ORDERED: KETOROLAC TROMETHAMINE 15 MG INJ ONE (15:56)
[2021-06-27] MEDS ORDERED: PROCHLORPERAZINE EDISYLATE 10 MG/2 ML VIAL ONE (15:56)
[2021-06-27] MEDS ORDERED: KETOROLAC TROMETHAMINE 15 MG INJ IVP ONE (16:00)
[2021-06-27] MEDS ORDERED: PROCHLORPERAZINE EDISYLATE 10 MG/2 ML VIAL IV ONE (16:00)
--- NOTE | 2021-06-27 16:00 | NUR ---
Pt c/o dizziness, Dr Montiel made aware and compazine slow IVP given.
--- NOTE | 2021-06-27 16:45 | NUR ---
IV removed. Catheter intact and site benign. Pressure and 4x4 gauze applied to site. No bleeding noted.
[2021-06-27 16:46] VITALS: BP 123/65
--- NOTE | 2021-06-27 16:47 | NUR ---
Patient discharged to home in stable condition. Written and verbal after care instructions given. Patient verbalizes understanding of instructions. Stressed follow up or return to ER for worsening s/s.
== END 2021-06-27 16:47 | disposition home or self-care (01) ==
LOC: ER 13:52
DX: N39.0 Urinary tract infection, site not specified (principal); F41.9 Anxiety disorder, unspecified; G89.4 Chronic pain syndrome; E11.42 Type 2 diabetes mellitus with diabetic polyneuropathy; E78.5 Hyperlipidemia, unspecified; I10 Essential (primary) hypertension; Z88.2 Allergy status to sulfonamides; Z88.8 Allergy status to other drugs, medicaments and biological substances; Z88.1 Allergy status to other antibiotic agents; Z91.041 Radiographic dye allergy status; Z91.013 Allergy to seafood; Z98.1 Arthrodesis status; J45.909 Unspecified asthma, uncomplicated; G31.84 Mild cognitive impairment of uncertain or unknown etiology
CPT/HCPCS: 36415; 80053; 81001; 84484; 85025; 87086; 93005; 96365; 96375; 99284; J0696; J0780; J1885; J7060; A4663

== ENCOUNTER 2021-10-16 11:26 | Emergency (ER) | payer MEDICARE, OTHER ==
[~2021-10-16] VITALS: Ht 167.6 cm; Wt 113.4 kg
[~2021-10-16 11:26] MED LIST changes: +LORA-259 PO; +NAPR220C15 PO; +PHEN99.5 PO
[2021-10-16] MEDS ORDERED: KETOROLAC TROMETHAMINE 15 MG INJ IVP ONE (12:15)
[2021-10-16] MEDS ORDERED: IV NORMAL SALINE 1000 ML BAG IV ONE (12:15)
[2021-10-16] MEDS ORDERED: MORPHINE SULFATE 2 MG/1 ML DISP.SYRIN IV ONE (12:15)
[2021-10-16] MEDS ORDERED: ONDANSETRON 4 MG/2 ML VIAL IV ONE (12:15)
[2021-10-16] MEDS ORDERED: MORPHINE SULFATE 4 MG/1 ML DISP.SYRIN ONE (12:22)
[2021-10-16] MEDS ORDERED: ONDANSETRON 4 MG/2 ML VIAL ONE (12:23)
[2021-10-16] MEDS ORDERED: KETOROLAC TROMETHAMINE 15 MG INJ ONE (12:23)
[2021-10-16 12:46] LABS: MEAN CORPUSCULAR HEMOGLOBIN 28.3 uug (24.7-32.8); MEAN CORPUSCULAR VOLUME 86.6 fL (75.5-95.3); PLATELET COUNT (AUTO) 294 K/uL (179-408)
--- NOTE | 2021-10-16 12:50 | NUR ---
PT IS IN ROOM #2B. DR WINSLOW EVALUATED THE PT.
[2021-10-16 13:00] LABS: BILIRUBIN,DIRECT 0.1 mg/dL (0.0-0.2); BILIRUBIN,TOTAL 0.4 mg/dL (0.2-1.0); CREATININE 1.1 mg/dL (0.6-1.3); POTASSIUM 4.5 mmol/L (3.5-5.1); TOTAL PROTEIN, SERUM 8.4 g/dL (6.4-8.2)
[2021-10-16 13:38] LABS: *BILIRUBIN,URIN NEGATIVE (NEGATIVE); *BLOOD, URINE NEGATIVE (NEGATIVE); *CLARITY,URINE CLEAR (CLEAR); *COLOR,URINE YELLOW (YELLOW); *KETONES,URINE TRACE (NEGATIVE); *UROBILINOGEN,URINE 0.2 E.U./dl (NORMAL); LEUKOCYTE ESTERASE ,URINE 3+ (NEGATIVE); NITRITE, URINE NEGATIVE (NEGATIVE); PH,URINE 5.5 (5.0-8.0); UGLUCOSE NEGATIVE (NEGATIVE)
[2021-10-16] MEDS ORDERED: CIPR500T5 PO (13:55)
[2021-10-16] MEDS ORDERED: CEFTRIAXONE /D5W 50ML IVPB **ER PYXIS IV ONE (13:59)
[2021-10-16] MEDS ORDERED: CEFTRIAXONE 1 G in IV DEXTROSE 5% 50 ML IV ONE (14:00)
--- NOTE | 2021-10-16 14:41 | NUR ---
PT WAS D/C'd TO HOME. D/C INSTRUCTIONS GIVEN TO THE PT BY DR WINSLOW.
[2021-10-16 14:42] VITALS: BP 141/87
[2021-10-16 16:48] LABS: BACTERIA,URINE MANY /HPF (NONE SEEN); SQUAMOUS EPITHELIAL CELL,UR MANY /HPF (NONE SEEN); WBC,URINE TNTC /HPF (0-3)
== END 2021-10-16 14:43 | disposition home or self-care (01) ==
LOC: ER 11:26
DX: R10.11 Right upper quadrant pain (principal); N12 Tubulo-interstitial nephritis, not specified as acute or chronic; R94.31 Abnormal electrocardiogram [ECG] [EKG]; I25.2 Old myocardial infarction; G89.4 Chronic pain syndrome; E11.42 Type 2 diabetes mellitus with diabetic polyneuropathy; Z98.1 Arthrodesis status; E78.5 Hyperlipidemia, unspecified; I10 Essential (primary) hypertension; M54.50 Low back pain, unspecified; F25.9 Schizoaffective disorder, unspecified; J45.909 Unspecified asthma, uncomplicated; Z88.8 Allergy status to other drugs, medicaments and biological substances; Z88.2 Allergy status to sulfonamides; Z91.013 Allergy to seafood; Z88.1 Allergy status to other antibiotic agents; Z91.041 Radiographic dye allergy status
CPT/HCPCS: 99285; 74176; 96365; 96375; 76705; 96361; 80076; 80048; 81001; 83690; 85025; 87086; 36415; 93005; J0696; J1885; J2405; J2270; J7040; A4663

== ENCOUNTER 2021-10-19 10:00 | Emergency (ER) | payer MEDICARE, OTHER ==
[~2021-10-19] VITALS: Ht 167.6 cm; Wt 96.6 kg
[~2021-10-19 10:00] MED LIST changes: +CIPR500T5 PO
[2021-10-19] MEDS ORDERED: IV NORMAL SALINE 1000 ML BAG IV ONE (10:45)
[2021-10-19] MEDS ORDERED: ONDANSETRON 4 MG/2 ML VIAL IV ONE (10:45)
[2021-10-19] MEDS ORDERED: MORPHINE SULFATE 2 MG/1 ML DISP.SYRIN IV ONE (10:45)
[2021-10-19] MEDS ORDERED: ONDANSETRON 4 MG/2 ML VIAL ONE (10:57)
[2021-10-19] MEDS ORDERED: MORPHINE SULFATE 4 MG/1 ML DISP.SYRIN ONE (10:57)
[2021-10-19 11:10] LABS: HEMATOCRIT 45.6 % (31.2-41.9); MEAN CORPUSCULAR HEMOGLOBIN 28.4 uug (24.7-32.8); MEAN CORPUSCULAR VOLUME 89.4 fL (75.5-95.3)
[2021-10-19 11:13] LABS: CARBON DIOXIDE 24 mmol/L (21-32); CHLORIDE 102 mmol/L (98-107); CREATININE 1.3 mg/dL (0.6-1.3); GLUCOSE 131 mg/dL (74-106); PLATELET COUNT (AUTO) 150 K/uL (179-408); POTASSIUM 4.7 mmol/L (3.5-5.1); UREA NITROGEN, BLOOD 32 mg/dL (7-18)
[2021-10-19 11:25] LABS: ALANINE AMINOTRANSFERASE 34 U/L (14-59); ALKALINE PHOSPHATASE 93 U/L (50-136); ASPARTATE AMINOTRANSFERASE 37 U/L (15-37); BILIRUBIN,DIRECT 0.1 mg/dL (0.0-0.2); BILIRUBIN,TOTAL 0.5 mg/dL (0.2-1.0); LIPASE 71 U/L (73-393); TOTAL PROTEIN, SERUM 8.5 g/dL (6.4-8.2)
[2021-10-19 11:43] LABS: *BILIRUBIN,URIN 1+ (NEGATIVE); *BLOOD, URINE NEGATIVE (NEGATIVE); *CLARITY,URINE CLEAR (CLEAR); *COLOR,URINE YELLOW (YELLOW); *KETONES,URINE TRACE (NEGATIVE); *UROBILINOGEN,URINE 0.2 E.U./dl (NORMAL); LEUKOCYTE ESTERASE ,URINE NEGATIVE (NEGATIVE); NITRITE, URINE NEGATIVE (NEGATIVE); PH,URINE 5.5 (5.0-8.0); UGLUCOSE NEGATIVE (NEGATIVE)
--- NOTE | 2021-10-19 11:57 | NUR ---
Patient back from CT.
[2021-10-19] MEDS ORDERED: NALO0.4D4 IJ (12:41)
[2021-10-19] MEDS ORDERED: MORP15TA PO (12:41)
== END 2021-10-19 13:30 | disposition home or self-care (01) ==
LOC: ER 10:00
DX: R10.9 Unspecified abdominal pain (principal); N39.0 Urinary tract infection, site not specified; I31.3 Pericardial effusion (noninflammatory); K57.30 Diverticulosis of large intestine without perforation or abscess without bleeding; K76.0 Fatty (change of) liver, not elsewhere classified; N20.0 Calculus of kidney; I10 Essential (primary) hypertension; E78.5 Hyperlipidemia, unspecified; F25.9 Schizoaffective disorder, unspecified; E11.42 Type 2 diabetes mellitus with diabetic polyneuropathy; I25.2 Old myocardial infarction; G31.84 Mild cognitive impairment of uncertain or unknown etiology; I25.10 Atherosclerotic heart disease of native coronary artery without angina pectoris
CPT/HCPCS: 99285; 74176; 96374; 71045; 96375; 80076; 80048; 81003; 83690; 85025; 87086; 84484; 36415; 93005; J2405; J2270; J7040; A4663

== ENCOUNTER 2022-10-14 15:28 | Emergency (ER) | payer MEDICARE, OTHER ==
[~2022-10-14] VITALS: Ht 167.6 cm; Wt 96.6 kg
[~2022-10-14 15:28] MED LIST changes: +MORP15TA PO; +NALO0.4D4 IJ
--- NOTE | 2022-10-14 17:03 | NUR ---
Patient to room #4b, awaiting ER provider exam, informed of plan of care at this time. No s/s of any distress noted, will continue to monitor.
--- NOTE | 2022-10-14 17:19 | NUR ---
ER provider at bedside for exam.
[2022-10-14] MEDS ORDERED: LORA0.5T48 PO (17:36)
--- NOTE | 2022-10-14 18:04 | NUR ---
Off unit to CT via wheel chair.
[2022-10-14 18:08] LABS: HEMATOCRIT 40.8 % (31.2-41.9); MEAN CORPUSCULAR HEMOGLOBIN 27.7 uug (24.7-32.8); MEAN CORPUSCULAR VOLUME 86.3 fL (75.5-95.3); PLATELET COUNT (AUTO) 250 K/uL (179-408)
[2022-10-14 18:26] LABS: BILIRUBIN,TOTAL 0.4 mg/dL (0.2-1.0); CREATININE 1.1 mg/dL (0.6-1.3); POTASSIUM 4.1 mmol/L (3.5-5.1); TOTAL PROTEIN, SERUM 8.4 g/dL (6.4-8.2)
--- NOTE | 2022-10-14 18:34 | NUR ---
Patient sitting up at bedside eating meal tray.
--- NOTE | 2022-10-14 18:52 | NUR ---
Patient up walking around.
--- NOTE | 2022-10-14 19:15 | NUR ---
REPORT RECIEVED FROM JOSE DAVID BAILEY.
[2022-10-14] MEDS ORDERED: KETOROLAC TROMETHAMINE 30 MG INJ IM ONE (19:30)
[2022-10-14] MEDS ORDERED: KETOROLAC TROMETHAMINE 60 MG INJ IM ONE (19:37)
[2022-10-14 20:17] VITALS: BP 139/91; TEMP 98.4; O2SAT 99
--- NOTE | 2022-10-14 20:19 | NUR ---
Patient dcd by and paperwork completed by Kevin Blake. patient left awaiting and stating she's coming back tomorrow.
== END 2022-10-14 19:50 | disposition home or self-care (01) ==
LOC: ER 15:28
DX: S09.90XA Unspecified injury of head, initial encounter (principal); I10 Essential (primary) hypertension; E78.5 Hyperlipidemia, unspecified; J45.909 Unspecified asthma, uncomplicated; E11.9 Type 2 diabetes mellitus without complications; Z88.2 Allergy status to sulfonamides; Z88.1 Allergy status to other antibiotic agents; Z88.8 Allergy status to other drugs, medicaments and biological substances; Z91.013 Allergy to seafood; Z79.899 Other long term (current) drug therapy; Z79.82 Long term (current) use of aspirin; X58.XXXA Exposure to other specified factors, initial encounter; Y93.89 Activity, other specified; Y92.89 Other specified places as the place of occurrence of the external cause; Y99.8 Other external cause status
CPT/HCPCS: 99285; 70450; 80053; 85025; 36415; 72125; 96372; J1885; A4663

== ENCOUNTER 2023-09-24 15:47 | Emergency (ER) | payer MEDICARE, OTHER ==
[~2023-09-24] VITALS: Ht 167.6 cm; Wt 90.7 kg
[~2023-09-24 15:47] MED LIST changes: +LORA0.5T48 PO
[2023-09-24] MEDS ORDERED: LORAZEPAM 1 MG TABLET ONE (16:16)
[2023-09-24] MEDS: LORAZEPAM 0.5 MG TABLET PO ONE (16:19)
[2023-09-24 16:29] LABS: BASOPHILS # (AUTO) 0.1 K/UL (0.0-0.2); BASOPHILS % (AUTO) 0.7 % (0.0-2.0); EOSINOPHILS # (AUTO) 0.3 K/uL (0.0-0.7); EOSINOPHILS % (AUTO) 2.5 % (0.0-7.0); HEMATOCRIT 42.5 % (31.2-41.9); HEMOGLOBIN 13.4 g/dL (10.9-14.3); LYMPHOCYTES % (AUTO) 16.7 % (20.5-51.5); MEAN CORPUSCULAR HEMOGLOBIN 27.1 uug (24.7-32.8); MEAN CORPUSCULAR HGB CONC 32 g/dL (32.3-35.6); MEAN CORPUSCULAR VOLUME 85.9 fL (75.5-95.3); MONOCYTES # (AUTO) 1.1 K/uL (0.1-1.30); MONOCYTES % (AUTO) 8.7 % (0.0-11.0); NEUTROPHILS # (AUTO) 8.6 K/uL (1.8-8.9); NEUTROPHILS % (AUTO) 71.4 % (38.5-71.5); PLATELET COUNT (AUTO) 262 K/uL (179-408); RED BLOOD CELL COUNT(AUTO) 4.94 MIL/uL (3.63-4.92); RED CELL DISTRIBUTION WIDTH 13.8 % (12.3-17.7); WHITE BLOOD COUNT (AUTO) 12.1 K/uL (3.8-11.8)
[2023-09-24 16:39] LABS: CALCIUM 9.2 mg/dL (8.5-10.1); CREATININE 1.1 mg/dL (0.6-1.3); POTASSIUM 4.2 mmol/L (3.5-5.1)
[2023-09-24] MEDS ORDERED: CYANOCOBALAMIN 1000 MCG/ML VIAL ONE (17:29)
[2023-09-24] MEDS: CYANOCOBALAMIN 1000 MCG/ML VIAL IM ONE (17:32)
[2023-09-24] MEDS ORDERED: LORA0.5T48 PO (17:34)
[2023-09-24 17:57] VITALS: BP 150/87; O2SAT 99
== END 2023-09-24 17:58 | disposition home or self-care (01) ==
LOC: ER 15:47
DX: F41.9 Anxiety disorder, unspecified (principal); E11.9 Type 2 diabetes mellitus without complications; E86.0 Dehydration; G47.33 Obstructive sleep apnea (adult) (pediatric); E53.8 Deficiency of other specified B group vitamins; E78.5 Hyperlipidemia, unspecified; J45.909 Unspecified asthma, uncomplicated; G89.29 Other chronic pain; M54.9 Dorsalgia, unspecified; Z88.2 Allergy status to sulfonamides; Z88.1 Allergy status to other antibiotic agents; Z88.8 Allergy status to other drugs, medicaments and biological substances; Z91.013 Allergy to seafood; Z79.899 Other long term (current) drug therapy; Z79.82 Long term (current) use of aspirin
CPT/HCPCS: 99283; 80048; 82607; 85025; 36415; 96372; J3420; A4606; A4663

== ENCOUNTER 2024-01-09 16:48 | Inpatient (IN) | payer MEDICARE, OTHER ==
[~2024-01-09] VITALS: Ht 165.1 cm; Wt 91.6 kg
[2024-01-09 18:01] LABS: *BILIRUBIN,URIN NEGATIVE (NEGATIVE); *BLOOD, URINE NEGATIVE (NEGATIVE); *CLARITY,URINE SLIGHTLY CLOUDY (CLEAR); *COLOR,URINE YELLOW (YELLOW); *KETONES,URINE NEGATIVE (NEGATIVE); *PROTEIN,URINE NEGATIVE (NEGATIVE); *UROBILINOGEN,URINE 0.2 E.U./dl (NORMAL); LEUKOCYTE ESTERASE ,URINE TRACE (NEGATIVE); NITRITE, URINE NEGATIVE (NEGATIVE); PH,URINE 5.5 (5.0-8.0); UGLUCOSE NEGATIVE (NEGATIVE)
[2024-01-09 18:13] LABS: BASOPHILS # (AUTO) 0.3 K/UL (0.0-0.2); BASOPHILS % (AUTO) 2.6 % (0.0-2.0); EOSINOPHILS # (AUTO) 0.3 K/uL (0.0-0.7); EOSINOPHILS % (AUTO) 2.8 % (0.0-7.0); HEMATOCRIT 37.2 % (31.2-41.9); HEMOGLOBIN 11.9 g/dL (10.9-14.3); LYMPHOCYTES # (AUTO) 1.6 K/uL (0.8-4.8); LYMPHOCYTES % (AUTO) 14.2 % (20.5-51.5); MEAN CORPUSCULAR HEMOGLOBIN 27.3 uug (24.7-32.8); MEAN CORPUSCULAR HGB CONC 32 g/dL (32.3-35.6); MEAN CORPUSCULAR VOLUME 85.2 fL (75.5-95.3); MONOCYTES # (AUTO) 0.8 K/uL (0.1-1.30); NEUTROPHILS # (AUTO) 8.1 K/uL (1.8-8.9); NEUTROPHILS % (AUTO) 73.4 % (38.5-71.5); PLATELET COUNT (AUTO) 277 K/uL (179-408); RED BLOOD CELL COUNT(AUTO) 4.37 MIL/uL (3.63-4.92); RED CELL DISTRIBUTION WIDTH 13.6 % (12.3-17.7)
[2024-01-09 18:17] LABS: DIFFERENTIAL COMMENT 1
[2024-01-09 18:19] LABS: *AMPHETAMINE, URINE NEGATIVE (NEGATIVE); *BARBITURATE, URINE NEGATIVE (NEGATIVE); *BENZODIAZEPINE, URINE POSITIVE (NEGATIVE); *CANNABINOID, URINE NEGATIVE (NEGATIVE); *COCCAINE, URINE NEGATIVE (NEGATIVE); *OPIATE, URINE NEGATIVE (NEGATIVE); *PHENCYCLIDINE SCREEN,URINE NEGATIVE (NEGATIVE); FENTANYL, URINE NEGATIVE (NEGATIVE)
[2024-01-09 18:21] LABS: CALCIUM 8.3 mg/dL (8.5-10.1); CARBON DIOXIDE 19 mmol/L (21-32); CHLORIDE 105 mmol/L (98-107); CREATININE 1.5 mg/dL (0.6-1.3); GLUCOSE 97 mg/dL (74-106); POTASSIUM 3.9 mmol/L (3.5-5.1); SODIUM SERUM 140 mmol/L (136-145); UREA NITROGEN, BLOOD 41 mg/dL (7-18)
[2024-01-09 18:27] LABS: BACTERIA,URINE FEW /HPF (NONE SEEN); RBC,URINE 0-3 /HPF (0-3); SQUAMOUS EPITHELIAL CELL,UR MANY /HPF (NONE SEEN); WBC,URINE 0-3 /HPF (0-3)
[2024-01-09 18:27] LABS: ALANINE AMINOTRANSFERASE 27 U/L (14-59); ALBUMIN 3.7 g/dL (3.4-5.0); ALKALINE PHOSPHATASE 77 U/L (50-136); ASPARTATE AMINOTRANSFERASE 32 U/L (15-37); BILIRUBIN,DIRECT 0.2 mg/dL (0.0-0.2); BILIRUBIN,TOTAL 0.5 mg/dL (0.2-1.0); TOTAL PROTEIN, SERUM 7.9 g/dL (6.4-8.2)
[2024-01-09 18:28] LABS: ACETAMINOPHEN < 2.0 ug/mL (10-30)
[2024-01-09 18:29] LABS: ETHANOL < 3 MG/DL (0-10)
[2024-01-09 18:32] LABS: LACTIC ACID 2.1 mmol/L (0.4-2.0)
[2024-01-09] MEDS ORDERED: CEFTRIAXONE /D5W 50ML IVPB **ER PYXIS IV ONE (18:52)
[2024-01-09] MEDS: IV NORMAL SALINE 1000 ML BAG IV ONE (19:49)
[2024-01-09] MEDS: CEFTRIAXONE 2 G in IV DEXTROSE 5% 100 ML IV ONE (19:49)
[2024-01-09] MEDS ORDERED: ACETAMINOPHEN 325 MG TABLET PO PRN (20:30)
[2024-01-09] MEDS ORDERED: IV NS 1000 ML 1,000 ML IV PRN (20:30)
[2024-01-09] MEDS ORDERED: INSULIN REGULAR, HUMAN 1000 UNIT/10 ML VIAL SQ PRN (20:30)
[2024-01-09] MEDS ORDERED: REMEDY ESSENTIAL ZINC PASTE 113 GM TP PRN ×2 (20:30→20:45)
[2024-01-09] MEDS ORDERED: ONDANSETRON 4 MG/2 ML VIAL IV PRN ×2 (20:30→20:45)
[2024-01-09] MEDS ORDERED: MAGNESIUM HYDROXIDE 30 ML LIQUID UDC PO PRN ×2 (20:30→20:45)
[2024-01-09] MEDS ORDERED: CEFTRIAXONE 1 G in IV DEXTROSE 5% 50 ML IV SCH (20:30)
[2024-01-09] MEDS ORDERED: DEXTROSE 50% 50 ML DISP.SYRIN IV PRN ×2 (20:30→20:45)
[2024-01-09] MEDS ORDERED: BLOOD SUGAR DIAGNOSTIC 1 EACH STRIP VI SCH (21:00)
[2024-01-09 21:44] VITALS: BP 129/61; TEMP 97.6; O2SAT 98
[2024-01-09] MEDS: BLOOD SUGAR DIAGNOSTIC 1 EACH STRIP VI SCH (22:01)
[2024-01-10] MEDS: GUAIFENESIN/DEXTROMETHORPHAN 5 ML UDC PO PRN (00:17)
[2024-01-10] MEDS: IV NS 1000 ML 1,000 ML IV PRN (00:20)
[2024-01-10] MEDS: ACETAMINOPHEN 325 MG TABLET PO PRN (00:20)
[2024-01-10 06:00] VITALS: BP 118/43; TEMP 98.9; O2SAT 99
[2024-01-10] MEDS: BETHANECHOL CHLORIDE 25 MG TABLET PO SCH (08:16)
[2024-01-10] MEDS: PHENAZOPYRIDINE HCL 100 MG TABLET PO SCH (08:16)
[2024-01-10] MEDS: ATORVASTATIN 20 MG TABLET PO SCH (08:16)
[2024-01-10] MEDS: PANTOPRAZOLE SODIUM 40 MG TABLET.DR PO SCH (08:16)
[2024-01-10] MEDS: ASPIRIN 81 MG TAB.CHEW PO SCH (08:16)
[2024-01-10] MEDS ORDERED: Medication Not On Formulary EA (Empagliflozin (Jardiance) 10 MG) PO SCH (09:00)
[2024-01-10] MEDS ORDERED: PHENAZOPYRIDINE HCL 99.5 MG PO SCH (09:00)
[2024-01-10] MEDS ORDERED: Medication Not On Formulary EA (Icosapent Ethyl (Vascepa) 1 GM) PO SCH (09:00)
[2024-01-10] MEDS ORDERED: ASPIRIN 81 MG TAB.CHEW PO SCH (09:00)
[2024-01-10] MEDS ORDERED: BETHANECHOL CHLORIDE 50 MG PO SCH (09:00)
[2024-01-10] MEDS ORDERED: Medication Not On Formulary EA (Dexlansoprazole (Dexilant) 30 MG) PO SCH (09:00)
[2024-01-10] MEDS ORDERED: Medication Not On Formulary EA (Rosuvastatin Calcium (Crestor) 1 TAB) PO SCH (09:00)
[2024-01-10 11:36] VITALS: BP 109/46; TEMP 98.5; O2SAT 97
[2024-01-10] MEDS ORDERED: POTA10CA43 PO (14:40)
[2024-01-10] MEDS ORDERED: PROM118S5 PO (14:40)
[2024-01-10] MEDS ORDERED: TRAZ-182 PO (14:40)
[2024-01-10] MEDS ORDERED: ONDA4TAB5 PO (14:40)
[2024-01-10] MEDS ORDERED: CALC500T89 PO (14:40)
[2024-01-10] MEDS ORDERED: PROG100C8 PO (14:40)
[2024-01-10] MEDS ORDERED: ALBU2.5V38 IH (14:40)
[2024-01-10] MEDS ORDERED: LINA290C PO (14:40)
[2024-01-10] MEDS ORDERED: ESTR1TAB21 PO (14:40)
[2024-01-10] MEDS ORDERED: ATOR20TA PO (14:40)
[2024-01-10] MEDS ORDERED: LOSA50TA39 PO (14:40)
[2024-01-10 15:47] VITALS: BP 129/72; TEMP 98.9; O2SAT 96
[2024-01-10] MEDS: CALCIUM CARBONATE 500 MG TABLET PO SCH (17:11)
[2024-01-10 19:00] VITALS: BP 136/60; TEMP 98.9; O2SAT 99
[2024-01-10] MEDS: TRAZODONE 50 MG TABLET PO SCH (20:25)
[2024-01-10] MEDS: CEFTRIAXONE 1 G in IV DEXTROSE 5% 50 ML IV SCH (20:33)
[2024-01-11 06:00] VITALS: BP 131/51; TEMP 97.9; O2SAT 98
[2024-01-11] MEDS: LOSARTAN POTASSIUM 50 MG TABLET PO SCH (09:22)
[2024-01-11] MEDS: POTASSIUM CHLORIDE 10 MEQ TAB.PRT.SR PO SCH (09:22)
[2024-01-11] MEDS: ESTRADIOL 1 MG TABLET PO SCH (09:23)
[2024-01-11 10:04] LABS: EOSINOPHILS # (AUTO) 0.2 K/uL (0.0-0.7); RED CELL DISTRIBUTION WIDTH 13.4 % (12.3-17.7)
[2024-01-11 10:10] LABS: BASOPHILS % (AUTO) 0.4 % (0.0-2.0); EOSINOPHILS % (AUTO) 3.1 % (0.0-7.0); HEMATOCRIT 39.5 % (31.2-41.9); HEMOGLOBIN 12.9 g/dL (10.9-14.3); LYMPHOCYTES # (AUTO) 1.7 K/uL (0.8-4.8); LYMPHOCYTES % (AUTO) 20.9 % (20.5-51.5); MEAN CORPUSCULAR HEMOGLOBIN 27.7 uug (24.7-32.8); MEAN CORPUSCULAR HGB CONC 33 g/dL (32.3-35.6); MEAN CORPUSCULAR VOLUME 84.9 fL (75.5-95.3); MONOCYTES # (AUTO) 0.7 K/uL (0.1-1.30); MONOCYTES % (AUTO) 8.5 % (0.0-11.0); NEUTROPHILS # (AUTO) 5.4 K/uL (1.8-8.9); NEUTROPHILS % (AUTO) 67.1 % (38.5-71.5); PLATELET COUNT (AUTO) 232 K/uL (179-408); RED BLOOD CELL COUNT(AUTO) 4.66 MIL/uL (3.63-4.92)
[2024-01-11 10:13] LABS: CALCIUM 9.1 mg/dL (8.5-10.1); CREATININE 1.1 mg/dL (0.6-1.3); POTASSIUM 3.7 mmol/L (3.5-5.1)
[2024-01-11 10:20] LABS: DIFFERENTIAL COMMENT 1
[2024-01-11 11:29] VITALS: BP 131/76; TEMP 98.6; O2SAT 97
[2024-01-11 16:12] VITALS: BP 118/64; TEMP 98.8; O2SAT 99
[2024-01-11] MEDS: METFORMIN HCL 500 MG TABLET PO SCH (16:54)
[2024-01-11 20:00] VITALS: BP 129/66; TEMP 98.8; O2SAT 98
[2024-01-11] MEDS: INSULIN REGULAR, HUMAN 1000 UNIT/10 ML VIAL SQ PRN (21:48)
[2024-01-12 06:00] VITALS: BP 125/62; TEMP 98.8; O2SAT 97
[2024-01-12] MEDS: METOPROLOL SUCCINATE XL 25 MG TAB.SR.24H PO SCH (09:19)
[2024-01-12 11:30] VITALS: BP 124/56; TEMP 99.6; O2SAT 96
[2024-01-12 15:42] VITALS: BP 141/55; TEMP 98.1; O2SAT 98
[2024-01-12] MEDS ORDERED: LORAZEPAM 2 MG/1 ML VIAL IV PRN (16:45)
[2024-01-12] MEDS ORDERED: LORAZEPAM 1 MG TABLET PO PRN (17:15)
[2024-01-12] MEDS: CEphaleXIN 500 MG CAPSULE PO SCH (17:32)
[2024-01-12 17:45] LABS: BASOPHILS # (AUTO) 0.1 K/UL (0.0-0.2); BASOPHILS % (AUTO) 0.5 % (0.0-2.0); DIFFERENTIAL COMMENT 1; EOSINOPHILS # (AUTO) 0.3 K/uL (0.0-0.7); EOSINOPHILS % (AUTO) 3.1 % (0.0-7.0); HEMATOCRIT 36.3 % (31.2-41.9); HEMOGLOBIN 11.8 g/dL (10.9-14.3); LYMPHOCYTES # (AUTO) 2.3 K/uL (0.8-4.8); LYMPHOCYTES % (AUTO) 23.3 % (20.5-51.5); MEAN CORPUSCULAR HEMOGLOBIN 27.4 uug (24.7-32.8); MEAN CORPUSCULAR HGB CONC 33 g/dL (32.3-35.6); MEAN CORPUSCULAR VOLUME 84.1 fL (75.5-95.3); MONOCYTES # (AUTO) 0.9 K/uL (0.1-1.30); MONOCYTES % (AUTO) 8.8 % (0.0-11.0); NEUTROPHILS # (AUTO) 6.4 K/uL (1.8-8.9); NEUTROPHILS % (AUTO) 64.3 % (38.5-71.5); PLATELET COUNT (AUTO) 250 K/uL (179-408); RED BLOOD CELL COUNT(AUTO) 4.32 MIL/uL (3.63-4.92); RED CELL DISTRIBUTION WIDTH 13.6 % (12.3-17.7); WHITE BLOOD COUNT (AUTO) 9.9 K/uL (3.8-11.8)
[2024-01-12 17:56] LABS: CALCIUM 8.3 mg/dL (8.5-10.1); MAGNESIUM 1.2 mg/dL (1.8-2.4); PHOSPHOROUS 2.2 mg/dL (2.5-4.9); POTASSIUM 3.9 mmol/L (3.5-5.1)
[2024-01-12] MEDS: MAGNESIUM OXIDE 400 MG TABLET PO SCH (18:24)
[2024-01-12] MEDS: NEUTRA PHOS PACKET PO ONE (18:24)
[2024-01-12 20:00] VITALS: BP 116/51; TEMP 98.5; O2SAT 98
[2024-01-13 04:00] VITALS: BP 118/67; TEMP 98.3; O2SAT 95
[2024-01-13] MEDS: PANTOPRAZOLE SODIUM 40 MG TABLET.DR PO SCH (08:39)
[2024-01-13 11:31] VITALS: BP 131/84; TEMP 98.3; O2SAT 97
[2024-01-13 15:47] VITALS: BP 125/59; TEMP 98.6; O2SAT 98
[2024-01-13] MEDS ORDERED: LORA-259 PO (17:38)
[2024-01-13] MEDS ORDERED: SERT100T PO (17:38)
[2024-01-13] MEDS ORDERED: MAGN400O6 PO (17:38)
[2024-01-13] MEDS ORDERED: CEPH500C2 PO (17:38)
[2024-01-13] MEDS ORDERED: ACET325T53 PO (17:38)
[2024-01-13] MEDS ORDERED: GUAI5SYR PO (17:38)
== END 2024-01-13 20:36 | DRG 871 ==
LOC: ER 16:48 → MEDSURG3 20:35
PROVIDERS: ADMIT Nurse Practitioner Acute Care; ATTEND Student in an Organized Health Care Education/Training Program
PROC: 05HB33Z Insertion of Infusion Device into Right Basilic Vein, Percutaneous Approach (ICD-10-PCS; principal; 2024-01-12)
DX: A41.9 Sepsis, unspecified organism (principal); G92.8 Other toxic encephalopathy; N39.0 Urinary tract infection, site not specified; N17.9 Acute kidney failure, unspecified; I50.32 Chronic diastolic (congestive) heart failure; J02.9 Acute pharyngitis, unspecified; I11.0 Hypertensive heart disease with heart failure; E86.0 Dehydration; K21.9 Gastro-esophageal reflux disease without esophagitis; I25.2 Old myocardial infarction; G89.4 Chronic pain syndrome; F42.9 Obsessive-compulsive disorder, unspecified; I25.10 Atherosclerotic heart disease of native coronary artery without angina pectoris; J45.909 Unspecified asthma, uncomplicated; F25.9 Schizoaffective disorder, unspecified; E11.42 Type 2 diabetes mellitus with diabetic polyneuropathy; E66.9 Obesity, unspecified; Z71.3 Dietary counseling and surveillance; E83.39 Other disorders of phosphorus metabolism; E83.42 Hypomagnesemia; E78.5 Hyperlipidemia, unspecified; R06.02 Shortness of breath; M89.8X9 Other specified disorders of bone, unspecified site; N20.0 Calculus of kidney; K57.30 Diverticulosis of large intestine without perforation or abscess without bleeding; F41.9 Anxiety disorder, unspecified; H93.12 Tinnitus, left ear; Z88.2 Allergy status to sulfonamides; Z88.6 Allergy status to analgesic agent; Z88.1 Allergy status to other antibiotic agents; Z91.041 Radiographic dye allergy status; Z91.013 Allergy to seafood; Z79.82 Long term (current) use of aspirin; Z79.84 Long term (current) use of oral hypoglycemic drugs; Z98.1 Arthrodesis status; Z68.33 Body mass index [BMI] 33.0-33.9, adult; Z88.5 Allergy status to narcotic agent
CPT/HCPCS: 36415; 70360; 70490; 71045; 74018; 83605; 83735; 84100; 85025; 86403; 87040; 87070; A4663; G0378; G0480; J0696; J7040

== ENCOUNTER 2024-01-13 14:48 | Inpatient (IN) | payer MEDICARE, OTHER ==
[~2024-01-13] VITALS: Ht 165.1 cm; Wt 96.3 kg
[~2024-01-13 14:48] MED LIST changes: +ALBU2.5V38 IH; +ATOR20TA PO; -BETH50TA8 PO; -CALC-17 PO; +CALC500T89 PO; -CHLO25TA23 PO; -CIPR500T5 PO; -DEXL60CA3 PO; -DIAZ5TAB4 PO; -EMPA10TA PO; +ESTR1TAB21 PO; +LINA290C PO; -LORA-259 PO; -LORA0.5T48 PO; +LOSA50TA39 PO; -MORP15TA PO; -NALO0.4D4 IJ; -NAPR220C15 PO; +ONDA4TAB5 PO; -PHEN99.5 PO; +POTA10CA43 PO; +PROG100C8 PO; +PROM118S5 PO; -ROSU10TA2 PO; +TRAZ-182 PO; -VALS160T2 PO
[2024-01-13] MEDS ORDERED: GUAI5SYR PO (17:38)
[2024-01-13] MEDS ORDERED: LORA-259 PO (17:38)
[2024-01-13] MEDS ORDERED: CEPH500C2 PO (17:38)
[2024-01-13] MEDS ORDERED: MAGN400O6 PO (17:38)
[2024-01-13] MEDS ORDERED: SERT100T PO (17:38)
[2024-01-13] MEDS ORDERED: ACET325T53 PO (17:38)
[2024-01-13 21:49] VITALS: BP 146/75; TEMP 98.4; O2SAT 95
[2024-01-13] MEDS ORDERED: REMEDY ESSENTIAL ZINC PASTE 113 GM TOP PRN (22:00)
[2024-01-13] MEDS: LORAZEPAM 1 MG TABLET PO PRN (22:56)
[2024-01-14 08:00] VITALS: BP 156/67; TEMP 98.1; O2SAT 98
[2024-01-14] MEDS ORDERED: ACETAMINOPHEN 325 MG TABLET-SA PATIENTS-PAIN ONLY PO PRN (09:15)
[2024-01-14] MEDS ORDERED: MAGNESIUM HYDROXIDE 30 ML LIQUID UDC PO PRN (09:15)
[2024-01-14] MEDS: SERTRALINE HCL 100 MG TABLET PO SCH (10:02)
[2024-01-14] MEDS: METOPROLOL SUCCINATE XL 25 MG TAB.SR.24H PO SCH (10:02)
[2024-01-14] MEDS: LOSARTAN POTASSIUM 50 MG TABLET PO SCH (10:02)
[2024-01-14] MEDS: POTASSIUM CHLORIDE 10 MEQ TAB.PRT.SR PO SCH (10:02)
[2024-01-14] MEDS: ASPIRIN 81 MG TAB.CHEW PO SCH (10:02)
[2024-01-14] MEDS: CEphaleXIN 500 MG CAPSULE PO SCH (14:06)
[2024-01-14] MEDS ORDERED: Medication Not On Formulary EA (Icosapent Ethyl (Vascepa) 2 GM) PO SCH (17:00)
[2024-01-14] MEDS: TRAZODONE 50 MG TABLET PO SCH (20:22)
[2024-01-14] MEDS: ATORVASTATIN 20 MG TABLET PO SCH (20:22)
[2024-01-14] MEDS: LORAZEPAM 1 MG TABLET PO PRN (21:38)
[2024-01-15] MEDS: GUAIFENESIN/DEXTROMETHORPHAN 5 ML UDC PO PRN (06:17)
[2024-01-15 06:36] VITALS: BP 134/77; TEMP 97.7; O2SAT 97
[2024-01-15] MEDS ORDERED: PROGESTERONE MICRONIZED 100 MG PO SCH (09:00)
[2024-01-15] MEDS ORDERED: Medication Not On Formulary EA (Linaclotide (Linzess) 290 MCG) PO SCH (09:00)
[2024-01-15] MEDS: ESTRADIOL 1 MG TABLET PO SCH (09:41)
[2024-01-15 11:05] VITALS: BP 143/62; TEMP 98.1
[2024-01-15] MEDS: MOUNJARO 5 MG/0.5 ML SQ SCH (15:42)
[2024-01-15 20:00] VITALS: BP 143/69; TEMP 98; O2SAT 98
[2024-01-16 05:55] VITALS: BP 120/62; TEMP 98.2; O2SAT 99
[2024-01-16 09:30] VITALS: TEMP 96.4; O2SAT 97
[2024-01-16 20:20] VITALS: BP 115/59; TEMP 98.1; O2SAT 98
[2024-01-17 06:00] VITALS: BP 133/59; TEMP 97.8; O2SAT 98
[2024-01-17 09:34] VITALS: BP 150/74; TEMP 98.3; O2SAT 99
[2024-01-17 20:00] VITALS: BP 135/63; TEMP 98.2; O2SAT 99
[2024-01-18 06:11] VITALS: BP 132/60; TEMP 97.6; O2SAT 98
[2024-01-18] MEDS: ACETAMINOPHEN 325 MG TABLET PO PRN (07:10)
[2024-01-18 16:30] VITALS: BP 130/75; TEMP 98.1; O2SAT 98
[2024-01-18 19:55] VITALS: BP 135/75; TEMP 98.1; O2SAT 98
[2024-01-19 09:00] VITALS: BP 126/64; TEMP 98.2
[2024-01-19 19:22] VITALS: BP 136/55; TEMP 98
[2024-01-19 22:00] VITALS: BP 125/55; TEMP 98; O2SAT 98
[2024-01-20 06:00] VITALS: BP 101/54; TEMP 98; O2SAT 98
[2024-01-20] MEDS: BACLOFEN 10 MG TABLET PO PRN (11:28)
[2024-01-20 16:33] VITALS: BP 131/77; TEMP 97.3; O2SAT 97
[2024-01-21 06:16] VITALS: BP 134/75; TEMP 98.7; O2SAT 90
[2024-01-21 06:19] VITALS: BP 130/70; TEMP 98; O2SAT 98
[2024-01-21 16:20] VITALS: BP 120/52; TEMP 98.1; O2SAT 96
[2024-01-21] MEDS: PROMETHAZINE HCL 25 MG TABLET PO PRN (18:03)
[2024-01-21 20:00] VITALS: BP 138/71; TEMP 98.4; O2SAT 97
[2024-01-21] MEDS: NORMAL SALINE NASAL 45 ML BOTTLE NS PRN (20:18)
[2024-01-22 06:00] VITALS: BP 127/64; TEMP 98.1; O2SAT 96
[2024-01-22 16:00] VITALS: BP 109/48; TEMP 97.7; O2SAT 98
[2024-01-22 20:00] VITALS: BP 110/59; TEMP 98; O2SAT 99
[2024-01-23 06:00] VITALS: BP 129/53; TEMP 98.1; O2SAT 95
[2024-01-23 08:37] VITALS: BP 129/53
== END 2024-01-23 12:45 | DRG 947 ==
PROVIDERS: ADMIT Physical Medicine & Rehabilitation Pain Medicine; ATTEND Physical Medicine & Rehabilitation Pain Medicine
DX: R53.1 Weakness (principal); G93.41 Metabolic encephalopathy; I50.32 Chronic diastolic (congestive) heart failure; N39.0 Urinary tract infection, site not specified; N17.9 Acute kidney failure, unspecified; E11.40 Type 2 diabetes mellitus with diabetic neuropathy, unspecified; K21.9 Gastro-esophageal reflux disease without esophagitis; J45.909 Unspecified asthma, uncomplicated; I11.0 Hypertensive heart disease with heart failure; E86.0 Dehydration; J02.9 Acute pharyngitis, unspecified; I25.10 Atherosclerotic heart disease of native coronary artery without angina pectoris; F25.1 Schizoaffective disorder, depressive type; F32.9 Major depressive disorder, single episode, unspecified; F39 Unspecified mood [affective] disorder; E78.5 Hyperlipidemia, unspecified; F42.9 Obsessive-compulsive disorder, unspecified; G31.84 Mild cognitive impairment of uncertain or unknown etiology; G89.29 Other chronic pain; M89.8X9 Other specified disorders of bone, unspecified site; N20.0 Calculus of kidney; M54.9 Dorsalgia, unspecified; Z68.35 Body mass index [BMI] 35.0-35.9, adult; Z87.891 Personal history of nicotine dependence; Z88.1 Allergy status to other antibiotic agents; Z88.2 Allergy status to sulfonamides; Z88.5 Allergy status to narcotic agent; Z88.6 Allergy status to analgesic agent; Z91.013 Allergy to seafood; E86.9 Volume depletion, unspecified
CPT/HCPCS: 97535-GO-CO; A4663; Q0169

== ENCOUNTER 2024-03-02 22:14 | Inpatient (IN) | payer MEDICARE, OTHER ==
[~2024-03-02] VITALS: Ht 165.1 cm; Wt 90.7 kg
[~2024-03-02 22:14] MED LIST changes: +ACET325T53 PO; -ALBU2.5V38 IH; -Blood Sugar Diagnostic VI; +CEPH500C2 PO; +GUAI5SYR PO; +LORA-259 PO; +MAGN400O6 PO; -ONDA4TAB5 PO; -PROM118S5 PO; +SERT100T PO
[2024-03-02 22:57] LABS: BASOPHILS % (AUTO) 0.4 % (0.0-2.0); EOSINOPHILS # (AUTO) 0.1 K/uL (0.0-0.7); EOSINOPHILS % (AUTO) 1.5 % (0.0-7.0); HEMATOCRIT 39.9 % (31.2-41.9); HEMOGLOBIN 13.1 g/dL (10.9-14.3); LYMPHOCYTES # (AUTO) 0.6 K/uL (0.8-4.8); MEAN CORPUSCULAR HEMOGLOBIN 27.9 uug (24.7-32.8); MEAN CORPUSCULAR HGB CONC 33 g/dL (32.3-35.6); MONOCYTES # (AUTO) 1.1 K/uL (0.1-1.30); MONOCYTES % (AUTO) 11.6 % (0.0-11.0); NEUTROPHILS # (AUTO) 7.2 K/uL (1.8-8.9); NEUTROPHILS % (AUTO) 79.5 % (38.5-71.5); PLATELET COUNT (AUTO) 188 K/uL (179-408); RED CELL DISTRIBUTION WIDTH 13.3 % (12.3-17.7); WHITE BLOOD COUNT (AUTO) 9.1 K/uL (3.8-11.8)
[2024-03-02 23:05] LABS: DIFFERENTIAL COMMENT 1
[2024-03-02 23:09] LABS: CALCIUM 9.4 mg/dL (8.5-10.1); CREATININE 1.2 mg/dL (0.6-1.3); POTASSIUM 3.7 mmol/L (3.5-5.1)
[2024-03-02 23:25] LABS: ALBUMIN 3.5 g/dL (3.4-5.0); BILIRUBIN,TOTAL 0.3 mg/dL (0.2-1.0); TOTAL PROTEIN, SERUM 7.9 g/dL (6.4-8.2)
[2024-03-03 03:20] LABS: *BILIRUBIN,URIN NEGATIVE (NEGATIVE); *BLOOD, URINE NEGATIVE (NEGATIVE); *CLARITY,URINE CLEAR (CLEAR); *COLOR,URINE YELLOW (YELLOW); *KETONES,URINE NEGATIVE (NEGATIVE); *PROTEIN,URINE NEGATIVE (NEGATIVE); *UROBILINOGEN,URINE 0.2 E.U./dl (NORMAL); LEUKOCYTE ESTERASE ,URINE NEGATIVE (NEGATIVE); NITRITE, URINE NEGATIVE (NEGATIVE); UGLUCOSE NEGATIVE (NEGATIVE)
[2024-03-03] MEDS ORDERED: mounjaro SUBCUT (04:55)
[2024-03-03] MEDS ORDERED: POLY17PO4 PO (04:55)
[2024-03-03] MEDS ORDERED: BACL10TA PO (04:55)
[2024-03-03] MEDS ORDERED: PROM25TA15 PO (04:55)
[2024-03-03] MEDS ORDERED: MAGN400O6 PO (04:55)
[2024-03-03] MEDS ORDERED: METO25TA6 PO (04:55)
[2024-03-03] MEDS ORDERED: QUET25TA PO (04:55)
[2024-03-03] MEDS ORDERED: BISA10SU61 RC (04:55)
[2024-03-03] MEDS ORDERED: NA P133E RC (04:55)
[2024-03-03] MEDS ORDERED: REMEDY ESSENTIAL ZINC PASTE 113 GM TP PRN (07:00)
[2024-03-03] MEDS ORDERED: MAGNESIUM HYDROXIDE 30 ML LIQUID UDC PO PRN ×2 (07:00→19:45)
[2024-03-03] MEDS: PANTOPRAZOLE SODIUM 40 MG TABLET.DR PO SCH (09:29)
[2024-03-03] MEDS: levoFLOXacin 500 MG/D5W 500 MG in PREMIXED 1 EACH IV SCH (09:30)
[2024-03-03] MEDS: ENOXAPARIN SODIUM 40 MG/0.4 ML DISP.SYRIN SQ SCH (09:31)
[2024-03-03 11:39] VITALS: BP 100/55; TEMP 98.4; O2SAT 95
[2024-03-03 15:43] VITALS: BP 110/54; TEMP 97.8; O2SAT 97
[2024-03-03 19:00] VITALS: BP 124/51; TEMP 98.4; O2SAT 95
[2024-03-03] MEDS ORDERED: BISACODYL 10 MG SUPP.RECT RC PRN (19:45)
[2024-03-03] MEDS ORDERED: MIRALAX 17 GM POWD.PACK PO PRN (19:45)
[2024-03-03] MEDS: METOPROLOL TARTRATE 25 MG TABLET PO SCH (20:35)
[2024-03-03] MEDS: TRAZODONE 50 MG TABLET PO SCH (20:35)
[2024-03-04 06:00] VITALS: BP 133/60; TEMP 97.9; O2SAT 100
[2024-03-04 06:53] LABS: BASOPHILS % (AUTO) 0.4 % (0.0-2.0); EOSINOPHILS # (AUTO) 0.2 K/uL (0.0-0.7); EOSINOPHILS % (AUTO) 3.2 % (0.0-7.0); HEMATOCRIT 38.4 % (31.2-41.9); HEMOGLOBIN 12.6 g/dL (10.9-14.3); LYMPHOCYTES # (AUTO) 1.2 K/uL (0.8-4.8); LYMPHOCYTES % (AUTO) 22.8 % (20.5-51.5); MEAN CORPUSCULAR HEMOGLOBIN 28.2 uug (24.7-32.8); MEAN CORPUSCULAR HGB CONC 33 g/dL (32.3-35.6); MEAN CORPUSCULAR VOLUME 85.7 fL (75.5-95.3); MONOCYTES % (AUTO) 18.9 % (0.0-11.0); NEUTROPHILS # (AUTO) 2.9 K/uL (1.8-8.9); NEUTROPHILS % (AUTO) 54.7 % (38.5-71.5); PLATELET COUNT (AUTO) 175 K/uL (179-408); RED BLOOD CELL COUNT(AUTO) 4.48 MIL/uL (3.63-4.92); RED CELL DISTRIBUTION WIDTH 13.2 % (12.3-17.7); WHITE BLOOD COUNT (AUTO) 5.2 K/uL (3.8-11.8)
[2024-03-04 07:22] LABS: DIFFERENTIAL COMMENT 1
[2024-03-04 07:27] LABS: ALBUMIN 3.1 g/dL (3.4-5.0); BILIRUBIN,DIRECT 0.1 mg/dL (0.0-0.2); BILIRUBIN,TOTAL 0.2 mg/dL (0.2-1.0); CALCIUM 9.1 mg/dL (8.5-10.1); MAGNESIUM 1.4 mg/dL (1.8-2.4); PHOSPHOROUS 3.3 mg/dL (2.5-4.9); POTASSIUM 3.8 mmol/L (3.5-5.1); TOTAL PROTEIN, SERUM 7.4 g/dL (6.4-8.2)
[2024-03-04 07:57] LABS: THYROID STIMULATING HORMONE 3.577 mIU/mL (0.358-3.740)
[2024-03-04] MEDS: POTASSIUM CHLORIDE 10 MEQ TAB.PRT.SR PO SCH (09:02)
[2024-03-04] MEDS: QUETIAPINE FUMARATE 25 MG TABLET PO SCH (09:02)
[2024-03-04] MEDS: ASPIRIN 81 MG TAB.CHEW PO SCH (09:03)
[2024-03-04] MEDS: SERTRALINE HCL 100 MG TABLET PO SCH (09:03)
[2024-03-04 09:48] LABS: EOSINOPHILS % (MANUAL) 5 % (0-8); LYMPHOCYTES % (MANUAL) 23 % (20-40); MONOCYTES % (MANUAL) 17 % (2-10); NEUTROPHILS % (MANUAL) 55 % (42-75); PLATELET ESTIMATE DECREASED
[2024-03-04] MEDS: MAGNESIUM SULFATE/D5W 100 ML IV SCH (11:20)
[2024-03-04 19:00] VITALS: BP 135/62; TEMP 97.9; O2SAT 97
[2024-03-04] MEDS: MAGNESIUM OXIDE 400 MG TABLET PO SCH (20:41)
[2024-03-05 06:00] VITALS: BP 106/57; TEMP 98.3; O2SAT 98
[2024-03-05 09:39] LABS: BASOPHILS % (AUTO) 0.5 % (0.0-2.0); EOSINOPHILS # (AUTO) 0.2 K/uL (0.0-0.7); EOSINOPHILS % (AUTO) 3.3 % (0.0-7.0); HEMATOCRIT 40.8 % (31.2-41.9); HEMOGLOBIN 13.3 g/dL (10.9-14.3); LYMPHOCYTES # (AUTO) 1.4 K/uL (0.8-4.8); LYMPHOCYTES % (AUTO) 24.2 % (20.5-51.5); MEAN CORPUSCULAR HEMOGLOBIN 27.9 uug (24.7-32.8); MEAN CORPUSCULAR HGB CONC 33 g/dL (32.3-35.6); MEAN CORPUSCULAR VOLUME 85.4 fL (75.5-95.3); MONOCYTES # (AUTO) 0.8 K/uL (0.1-1.30); MONOCYTES % (AUTO) 13.4 % (0.0-11.0); NEUTROPHILS # (AUTO) 3.4 K/uL (1.8-8.9); NEUTROPHILS % (AUTO) 58.6 % (38.5-71.5); PLATELET COUNT (AUTO) 213 K/uL (179-408); RED BLOOD CELL COUNT(AUTO) 4.77 MIL/uL (3.63-4.92); RED CELL DISTRIBUTION WIDTH 13.4 % (12.3-17.7); WHITE BLOOD COUNT (AUTO) 5.8 K/uL (3.8-11.8)
[2024-03-05] MEDS: BACLOFEN 10 MG TABLET PO PRN (09:40)
[2024-03-05 09:54] LABS: CALCIUM 8.8 mg/dL (8.5-10.1); CREATININE 1.1 mg/dL (0.6-1.3); MAGNESIUM 1.9 mg/dL (1.8-2.4); PHOSPHOROUS 2.8 mg/dL (2.5-4.9); POTASSIUM 3.5 mmol/L (3.5-5.1)
[2024-03-05 09:56] LABS: DIFFERENTIAL COMMENT 1
[2024-03-05 11:46] VITALS: BP 110/47; TEMP 97.4; O2SAT 97
[2024-03-05 15:39] VITALS: BP 144/72; TEMP 97.5; O2SAT 97
[2024-03-05 19:00] VITALS: BP 114/61; TEMP 98; O2SAT 95
[2024-03-05] MEDS: METOPROLOL TARTRATE 25 MG TABLET PO SCH (20:40)
[2024-03-06 06:00] VITALS: BP 111/64; TEMP 98.2; O2SAT 97
[2024-03-06] MEDS: MULTIVITAMINS,THERAPEUTIC TABLET PO SCH (09:01)
[2024-03-06] MEDS: ASPIRIN EC 81 MG TABLET.DR PO SCH (09:01)
[2024-03-06] MEDS: FERROUS GLUCONATE 324 MG TABLET PO SCH (09:03)
[2024-03-06 11:15] VITALS: BP 130/69; TEMP 97.9; O2SAT 97
[2024-03-06] MEDS ORDERED: FERR324T PO (14:11)
[2024-03-06] MEDS ORDERED: BISA10SU12 RC (14:11)
[2024-03-06] MEDS ORDERED: QUET25TA36 PO (14:11)
[2024-03-06] MEDS ORDERED: POLY17PO4 PO (14:11)
[2024-03-06] MEDS ORDERED: PANT40TA49 PO (14:11)
[2024-03-06] MEDS ORDERED: MAGN400T30 PO (14:11)
[2024-03-06] MEDS ORDERED: ASPI-618 PO (14:11)
[2024-03-06] MEDS ORDERED: TRAZ-252 PO (14:11)
[2024-03-06] MEDS ORDERED: POTA10CA43 PO (14:11)
[2024-03-06] MEDS ORDERED: BACL10TA PO (14:11)
[2024-03-06] MEDS ORDERED: METO25TA6 PO (14:11)
[2024-03-06] MEDS ORDERED: AMOX-430 PO (14:11)
[2024-03-06] MEDS ORDERED: MULT-24 PO (14:11)
[2024-03-06] MEDS ORDERED: SERT-440 PO (14:11)
[2024-03-06 15:46] VITALS: BP 132/63; TEMP 97.5; O2SAT 96
== END 2024-03-06 17:00 | disposition home health service (06) | DRG 871 ==
LOC: ER 22:14 → MEDSURG3 03-03 08:08
PROVIDERS: ADMIT Student in an Organized Health Care Education/Training Program; ATTEND Internal Medicine
PROC: 05HB33Z Insertion of Infusion Device into Right Basilic Vein, Percutaneous Approach (ICD-10-PCS; principal; 2024-03-03)
DX: A41.9 Sepsis, unspecified organism (principal); G92.8 Other toxic encephalopathy; J69.0 Pneumonitis due to inhalation of food and vomit; N17.0 Acute kidney failure with tubular necrosis; J18.9 Pneumonia, unspecified organism; I50.32 Chronic diastolic (congestive) heart failure; E83.42 Hypomagnesemia; F25.9 Schizoaffective disorder, unspecified; K57.30 Diverticulosis of large intestine without perforation or abscess without bleeding; E78.5 Hyperlipidemia, unspecified; E66.9 Obesity, unspecified; Z68.33 Body mass index [BMI] 33.0-33.9, adult; I11.0 Hypertensive heart disease with heart failure; G89.4 Chronic pain syndrome; E11.42 Type 2 diabetes mellitus with diabetic polyneuropathy; E27.8 Other specified disorders of adrenal gland; E11.65 Type 2 diabetes mellitus with hyperglycemia; I25.2 Old myocardial infarction; Z91.041 Radiographic dye allergy status; N20.0 Calculus of kidney; J45.909 Unspecified asthma, uncomplicated; F42.9 Obsessive-compulsive disorder, unspecified; I25.10 Atherosclerotic heart disease of native coronary artery without angina pectoris; F41.9 Anxiety disorder, unspecified; R65.20 Severe sepsis without septic shock; Z79.84 Long term (current) use of oral hypoglycemic drugs; Z79.82 Long term (current) use of aspirin; Z88.2 Allergy status to sulfonamides; Z88.8 Allergy status to other drugs, medicaments and biological substances; Z88.6 Allergy status to analgesic agent; Z88.1 Allergy status to other antibiotic agents; Z88.5 Allergy status to narcotic agent; Z98.1 Arthrodesis status; Z87.440 Personal history of urinary (tract) infections; Z87.891 Personal history of nicotine dependence
CPT/HCPCS: 36415; 70030-TC; 71045; 83550; 83605; 83735; 84100; 84443; 84484; 85025; 87040; A4663; C1758; G0378; J1650; J1956; J3475

== ENCOUNTER 2025-01-05 11:00 | Emergency (ER) | payer MEDICARE, OTHER ==
[~2025-01-05] VITALS: Ht 152.4 cm; Wt 81.6 kg
[~2025-01-05 11:00] MED LIST changes: -ACET325T53 PO; +AMOX-430 PO; +ASPI-618 PO; -ASPI81TA31 PO; -ATOR20TA PO; +BACL10TA PO; +BISA10SU12 RC; -CALC500T89 PO; -CEPH500C2 PO; -ESTR1TAB21 PO; +FERR324T PO; -GUAI5SYR PO; -ICOS1CAP PO; -LINA290C PO; -LORA-259 PO; -LOSA50TA39 PO; -MAGN400O6 PO; +MAGN400T30 PO; -METF-442 PO; -METO-356 PO; +METO25TA6 PO; +MULT-24 PO; +PANT40TA49 PO; +POLY17PO4 PO; -PROG100C8 PO; +QUET25TA36 PO; +SERT-440 PO; -SERT100T PO; -TRAZ-182 PO; +TRAZ-252 PO
[2025-01-05] MEDS ORDERED: ONDANSETRON 4 MG/2 ML VIAL ONE ×3 (12:41→17:30)
[2025-01-05] MEDS ORDERED: MORPHINE SULFATE 4 MG/1 ML DISP.SYRIN ONE ×3 (12:42→17:30)
[2025-01-05] MEDS: MORPHINE SULFATE 2 MG/1 ML DISP.SYRIN IV ONE (13:01)
[2025-01-05] MEDS: ONDANSETRON 4 MG/2 ML VIAL IV ONE ×3 (13:02→17:33)
[2025-01-05 13:06] LABS: PLATELET COUNT (AUTO) 287 K/uL (179-408); RED BLOOD CELL COUNT(AUTO) 4.63 MIL/uL (3.63-4.92); RED CELL DISTRIBUTION WIDTH 12.8 % (12.3-17.7); WHITE BLOOD COUNT (AUTO) 9.0 K/uL (3.8-11.8)
[2025-01-05 13:24] LABS: ASPARTATE AMINOTRANSFERASE 32 U/L (15-37); CREATININE 1.2 mg/dL (0.6-1.3); SODIUM SERUM 140 mmol/L (136-145); TOTAL PROTEIN, SERUM 8.2 g/dL (6.4-8.2); UREA NITROGEN, BLOOD 43 mg/dL (7-18)
[2025-01-05 13:50] LABS: *BILIRUBIN,URIN NEGATIVE (NEGATIVE); *BLOOD, URINE NEGATIVE (NEGATIVE); *CLARITY,URINE CLEAR (CLEAR); *COLOR,URINE YELLOW (YELLOW); *KETONES,URINE NEGATIVE (NEGATIVE); *PROTEIN,URINE NEGATIVE (NEGATIVE); *UROBILINOGEN,URINE 0.2 E.U./dl (NORMAL); LEUKOCYTE ESTERASE ,URINE NEGATIVE (NEGATIVE); NITRITE, URINE NEGATIVE (NEGATIVE); UGLUCOSE NEGATIVE (NEGATIVE)
[2025-01-05 14:00] VITALS: BP 121/82
[2025-01-05] MEDS: MORPHINE SULFATE 4 MG/1 ML DISP.SYRIN IV ONE ×2 (14:47→17:33)
[2025-01-05 19:01] VITALS: BP 110/77; O2SAT 97
== END 2025-01-05 17:56 | disposition home or self-care (01) ==
LOC: ER 11:00
DX: N95.0 Postmenopausal bleeding (principal); E11.42 Type 2 diabetes mellitus with diabetic polyneuropathy; I11.0 Hypertensive heart disease with heart failure; E78.5 Hyperlipidemia, unspecified; F25.9 Schizoaffective disorder, unspecified; F41.9 Anxiety disorder, unspecified; G89.29 Other chronic pain; I25.10 Atherosclerotic heart disease of native coronary artery without angina pectoris; I25.2 Old myocardial infarction; I50.32 Chronic diastolic (congestive) heart failure; J45.909 Unspecified asthma, uncomplicated; K76.0 Fatty (change of) liver, not elsewhere classified; R32 Unspecified urinary incontinence; Z41.1 Encounter for cosmetic surgery; Z79.82 Long term (current) use of aspirin; Z79.84 Long term (current) use of oral hypoglycemic drugs; Z79.899 Other long term (current) drug therapy; Z87.19 Personal history of other diseases of the digestive system; Z88.1 Allergy status to other antibiotic agents; Z88.2 Allergy status to sulfonamides; Z88.5 Allergy status to narcotic agent; Z88.7 Allergy status to serum and vaccine; Z88.8 Allergy status to other drugs, medicaments and biological substances; Z90.89 Acquired absence of other organs; Z91.013 Allergy to seafood; Z98.1 Arthrodesis status
CPT/HCPCS: 99285; 96374; 76856; 71045; 96375; 80076; 80048; 81003; 83690; 85025; 85730; 87086; 84484; 36415; 74021; 93005; 96376; 51702; J2405 ×3; J2270 ×3; A4606; A4663